=== PATIENT | male | born 1960 | race Caucasian/White ===

== ENCOUNTER 2018-02-02 11:46 | Emergency (ER) | payer SELFPAY ==
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
[2018-02-02 15:06] VITALS: BP 170/79
== END 2018-02-02 15:06 | disposition home or self-care (01) ==
LOC: ER 11:46
DX: B35.6 Tinea cruris (principal); M54.16 Radiculopathy, lumbar region; M54.5 Low back pain; G89.29 Other chronic pain; M21.371 Foot drop, right foot; F17.200 Nicotine dependence, unspecified, uncomplicated
CPT/HCPCS: 99283

== ENCOUNTER 2018-04-23 18:56 | Inpatient (IN) | payer SELFPAY ==
[2018-04-23] MEDS ORDERED: NALOXONE HCL INJ/PF 0.4 MG/1 ML SDV IV ONE (19:02)
[2018-04-23] MEDS ORDERED: NORMAL SALINE 1000 ML 1,000 ML IV ONE (19:03)
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
[2018-04-23] MEDS ORDERED: NALOXONE HCL INJ/PF 0.4 MG/1 ML SDV ONE (19:37)
[2018-04-23] MEDS ORDERED: DILTIAZEM HCL/D5W 125 MG/125 ML RTUINJ IV PRN (20:17)
[2018-04-23] MEDS ORDERED: DILTIAZEM HCL INJ 25 MG/5 ML VIAL IV ONE (20:18)
[2018-04-23 20:39] LABS: ABSOLUTE EOSINOPHILS # (AUTO) 0.1 10^3/uL (0.0-0.6); TOTAL CELLS COUNTED % (AUTO) 100 %
[2018-04-23 20:40] LABS: APPEARANCE,URINE CLEAR; BILIRUBIN,URINE NEGATIVE (NEGATIVE); COLOR,URINE COLORLESS; GLUCOSE, URINE NEGATIVE (NEGATIVE); KETONES,URINE NEGATIVE (NEGATIVE); LEUKOCYTE ESTERASE,URINE NEGATIVE (NEGATIVE); NITRITE,URINE NEGATIVE (NEGATIVE); PROTEIN,URINE NEGATIVE (NEGATIVE); URINE SPECIFIC GRAVITY 1.003; UROBILINOGEN,URINE NEGATIVE mg/dL (<2.0)
[2018-04-23 20:46] LABS: ABSOLUTE LYMPHOCYTES (AUTO) 2.2 10^3/uL (0.5-4.7); ABSOLUTE NEUT (AUTO) 8.4 10^3/uL (1.7-8.2); BASOPHILS % (AUTO) 0.2 % (0-2); EOSINOPHILS % (AUTO) 0.9 % (0-6); HEMATOCRIT 44.1 % (37.9-51.0); LYMPHOCYTES % (AUTO) 18.5 % (13-45); MEAN CORPUSCULAR HEMOGLOBIN 32.9 pg (27.0-33.4); MEAN CORPUSCULAR VOLUME 97 fl (80-97); MONOCYTES % (AUTO) 8.4 % (3-13); PLATELET COUNT 214 10^3/uL (150-450); RED BLOOD COUNT 4.57 10^6/uL (4.35-5.55); RED CELL DISTRIBUTION WIDTH 12.5 % (11.5-14.0); WHITE BLOOD COUNT 11.7 10^3/uL (4.0-10.5)
[2018-04-23 20:52] LABS: ALANINE AMINOTRANSFERASE 32 U/L (21-72); ALBUMIN 4.1 g/dL (3.5-5.0); ALCOHOL 193 mg/dL (NONE DETECTED); ALKALINE PHOSPHATASE 49 U/L (38-126); ANION GAP 9 (5-19); ASPARTATE AMINO TRANSFERASE 66 U/L (17-59); BILIRUBIN,DIRECT 0.3 mg/dL (0.0-0.4); BILIRUBIN,TOTAL 0.6 mg/dL (0.2-1.3); BLOOD UREA NITROGEN 6 mg/dL (7-20); CALCIUM 8.1 mg/dL (8.4-10.2); CARBON DIOXIDE 28 mmol/L (22-30); CHLORIDE 101 mmol/L (98-107); CREATINE KINASE 103 U/L (55-170); GLUCOSE 102 mg/dL (75-110); POTASSIUM 3.2 mmol/L (3.6-5.0); SODIUM 138.2 mmol/L (137-145); TOTAL PROTEIN 7.2 g/dL (6.3-8.2)
[2018-04-23 21:05] LABS: URINE AMPHETAMINES SCREEN NEGATIVE; URINE BARBITURATES SCREEN NEGATIVE; URINE BENZODIAZEPINES SCREEN NEGATIVE; URINE COCAINE SCREEN NEGATIVE; URINE MARIJUANA (THC) SCREEN NEGATIVE; URINE METHADONE SCREEN NEGATIVE; URINE PHENCYCLIDINE SCREEN NEGATIVE
--- NOTE | 2018-04-23 21:14 | RADIOLOGY REPORT (SQ) ---
XR CHEST 1 VIEW HISTORY: sob. COMPARISON: None. FINDINGS/IMPRESSION: Normal cardiomediastinal silhouette. Lungs are clear. No pleural effusion or pneumothorax is seen. No acute osseous findings.
--- NOTE | 2018-04-23 22:35 | EKG REPORT ---
SEVERITY:- ABNORMAL ECG - ATRIAL FIBRILLATION INCOMPLETE RIGHT BUNDLE BRANCH BLOCK : Confirmed by: Kayy Mantilla MD 23-Apr-2018 22:34:33
[2018-04-23] MEDS: MAGNESIUM SULFATE/D5W 1 GM/100 ML RTUPB IV SCH (23:14)
[2018-04-23] MEDS: POTASSI CL 20 MEQ/50 ML RIDER 20 MEQ/50 ML RTUPB IV SCH (23:15)
[2018-04-24] MEDS: MAGNESIUM SULFATE/D5W 1 GM/100 ML RTUPB IV SCH (00:10)
[2018-04-24] MEDS ORDERED: LEVALBUTEROL HCL NEB 1.25 MG/3 ML AMPUL NEB PRN (00:33)
[2018-04-24] MEDS ORDERED: DILTIAZEM HCL/D5W 125 MG/125 ML RTUINJ IV PRN (00:33)
[2018-04-24] MEDS ORDERED: MAG HYDROX/AL HYDROX/SIMETH SUSP 30 ML UDCUP PO PRN (00:33)
[2018-04-24] MEDS ORDERED: MAGNESIUM HYDROXIDE SUSP 30 ML UDCUP PO PRN (00:33)
[2018-04-24] MEDS ORDERED: THIAMINE HCL 100 MG, FOLIC ACID 1 MG in NORMAL SALINE 250 ML IV ONE (00:45)
[2018-04-24] MEDS ORDERED: DIAZEPAM 5 MG TABLET PO PRN (00:46)
[2018-04-24] MEDS ORDERED: NORMAL SALINE 1000 ML 1,000 ML IV PRN (01:00)
[2018-04-24] MEDS: POTASSI CL 20 MEQ/50 ML RIDER 20 MEQ/50 ML RTUPB IV SCH (01:05)
[2018-04-24 02:01] LABS: APPEARANCE,URINE CLEAR; BILIRUBIN,URINE NEGATIVE (NEGATIVE); COLOR,URINE STRAW; GLUCOSE, URINE 50 mg/dL (NEGATIVE); KETONES,URINE NEGATIVE (NEGATIVE); LEUKOCYTE ESTERASE,URINE NEGATIVE (NEGATIVE); NITRITE,URINE NEGATIVE (NEGATIVE); PROTEIN,URINE NEGATIVE (NEGATIVE); URINE SPECIFIC GRAVITY 1.003; UROBILINOGEN,URINE NEGATIVE mg/dL (<2.0)
[2018-04-24] MEDS ORDERED: THIAMINE HCL INJ 200 MG/2 ML VIAL ONE (02:04)
[2018-04-24] MEDS: ENOXAPARIN SODIUM INJ 80 MG/0.8 ML DISP.SYRIN SUBCUT SCH ×2 (02:08→13:17)
[2018-04-24] MEDS ORDERED: FOLIC ACID INJ 5 MG/1 ML 10 ML VIAL ONE (02:46)
[2018-04-24 03:05] LABS: CREATINE KINASE MB 1.08 ng/mL (<4.55); TROPONIN I 0.032 ng/mL
[2018-04-24] MEDS ORDERED: DILTIAZEM HCL/D5W 125 MG/125 ML RTUINJ IV ONE (05:01)
--- NOTE | 2018-04-24 06:57 | PDOC H&P ---
History of Present Illness Admission Date/PCP: 04/24/18 00:44 Patient complains of: Altered mental status History of Present Illness: ARLENE BAGLEY is a 57 year old male with a past medical history of tobacco, alcohol and polysubstance abuse who presents via EMS for opiate overdose after being found unresponsive. Patient received a total of 3 doses of Narcan is awake and alert but intoxicated. He is found hypoxic, A. fib with RVR, started on BiPAP and IV Cardizem. He denies any medications, chest pain and is referred to the hospitalist for admission. Patient denies previous episode of atrial fibrillation. Past Medical History Cardiac Medical History: Denies: Atrial Fibrillation, Congestive Heart Failure, Coronary Artery Disease Pulmonary Medical History: Reports: Bronchitis Musculoskeltal Medical History: Reports: Arthritis Psychiatric Medical History: Reports: Alcohol Dependency, Substance Abuse, Tobacco Dependency Past Surgical History Past Surgical History: Reports: None Social History Information Source: Patient, Emergency Med Personnel, [facility] Records Lives with: Family Smoking Status: Unknown if Ever Smoked Frequency of Alcohol Use: Heavy - 80 ounces of malt liquor daily, denies history of DTs Hx Recreational Drug Use: Yes Drugs: Cocaine, Other - Opiates - Advance Directive Resuscitation Status: Full Code Family History Family History: COPD Parental Family History Reviewed: Yes Children Family History Reviewed: Yes Sibling(s) Family History Reviewed.: Yes Medication/Allergy Home Medications: Terbinafine HCl [Jock Itch] 15 gm TP TID #60 cream..g. 02/02/18 Allergies/Adverse Reactions: No Known Allergies Allergy (Unverified 02/02/18 13:25) Review of Systems Constitutional: ABSENT: chills, fever(s), headache(s), weight gain, weight loss Eyes: ABSENT: visual disturbances Ears: ABSENT: hearing changes Cardiovascular: ABSENT: chest pain, dyspnea on exertion, edema, orthropnea, palpitations Respiratory: ABSENT: cough, hemoptysis Gastrointestinal: ABSENT: abdominal pain, constipation, diarrhea, hematemesis, hematochezia, nausea, vomiting Genitourinary: ABSENT: dysuria, hematuria Musculoskeletal: ABSENT: joint swelling Integumentary: ABSENT: rash, wounds Neurological: ABSENT: abnormal gait, abnormal speech, confusion, dizziness, focal weakness, syncope Psychiatric: ABSENT: anxiety, depression, homidical ideation, suicidal ideation Endocrine: ABSENT: cold intolerance, heat intolerance, polydipsia, polyuria Hematologic/Lymphatic: ABSENT: easy bleeding, easy bruising Physical Exam Vital Signs: Temp Pulse Resp BP Pulse Ox 16 117/78 93 04/24/18 06:01 04/24/18 06:01 04/24/18 06:01 Intake & Output 04/22/18 04/23/18 04/24/18 11:59 11:59 11:59 Intake Total 451.2 Balance 451.2 General appearance: PRESENT: cooperative, disheveled, mild distress, thin Head exam: PRESENT: atraumatic, normocephalic Eye exam: PRESENT: conjunctiva pink, EOMI, PERRLA. ABSENT: scleral icterus Ear exam: PRESENT: normal external ear exam Mouth exam: PRESENT: moist, tongue midline Neck exam: ABSENT: carotid bruit, JVD, lymphadenopathy, thyromegaly Respiratory exam: PRESENT: accessory muscle use, crackles, prolonged expiratory phas, retraction, tachypnea. ABSENT: wheezes Cardiovascular exam: PRESENT: irregular rhythm, +S1, +S2, tachycardia. ABSENT: gallop Pulses: PRESENT: normal dorsalis pedis pul Vascular exam: PRESENT: normal capillary refill GI/Abdominal exam: PRESENT: normal bowel sounds, soft. ABSENT: distended, guarding, mass, organolmegaly, rebound, tenderness Rectal exam: PRESENT: deferred Extremities exam: PRESENT: full ROM. ABSENT: calf tenderness, clubbing, pedal edema Neurological exam: PRESENT: alert, altered, awake, oriented to person, oriented to place, oriented to time, oriented to situation, CN II-XII grossly intact. ABSENT: motor sensory deficit Psychiatric exam: PRESENT: appropriate affect, normal mood. ABSENT: homicidal ideation, suicidal ideation Skin exam: PRESENT: dry, intact, warm. ABSENT: cyanosis, rash Results Laboratory Results: 04/24/18 01:41 Urine Color STRAW Urine Appearance CLEAR Urine pH 6.0 Ur Specific [place] 1.003 Urine Protein NEGATIVE Urine Glucose (UA) 50 H Urine Ketones NEGATIVE Urine Blood NEGATIVE Urine Nitrite NEGATIVE Ur Leukocyte Esterase NEGATIVE Urine WBC (Auto) 0 Urine RBC (Auto) 0 04/24/18 04/24/18 02:34 02:34 Creatine Kinase 100 CK-MB (CK-2) 1.08 Troponin I 0.032 Impressions: Chest X-Ray 04/23/18 20:18 FINDINGS/IMPRESSION: Normal cardiomediastinal silhouette. Lungs are clear. No pleural effusion or pneumothorax is seen. No acute osseous findings. Assessment & Plan - Diagnosis (1) Atrial fibrillation with rapid ventricular response Is this a current diagnosis for this admission?: Yes Plan: New onset complicated by polysubstance abuse, Lovenox, follow-up IV Cardizem, 2D echo and cardiac enzymes (2) Alcohol dependence Is this a current diagnosis for this admission?: Yes Plan: Folate, thiamine, as needed benzodiazepine and education (3) Hypoxemia Is this a current diagnosis for this admission?: Yes Plan: Possible pulmonary edema though not evident on initial chest x-ray, supplemental oxygen and BiPAP, Xopenex as needed (4) Opiate overdose Qualifiers: Encounter type: initial encounter Injury intent: accidental or unintentional Qualified Code(s): T40.601A - Poisoning by unspecified narcotics , accidental (unintentional), initial encounter Is this a current diagnosis for this admission?: Yes Plan: Supportive care, Narcan as needed - Time Time Spent: 50 to 70 Minutes - Inpatient Certification Medical Necessity: Need Close Monitoring Due to Risk of Patient Decompensation
[2018-04-24 08:59] LABS: CREATINE KINASE MB 0.97 ng/mL (<4.55); TROPONIN I 0.022 ng/mL
[2018-04-24] MEDS: DOCUSATE SODIUM 100 MG CAPSULE PO SCH ×2 (09:51→17:56)
[2018-04-24] MEDS ORDERED: THIAMINE HCL 100 MG, FOLIC ACID 1 MG in NORMAL SALINE 250 ML IV SCH (10:00)
[2018-04-24] MEDS ORDERED: DILTIAZEM HCL 240 MG CAPSULE.CR PO ONE (11:00)
[2018-04-24] MEDS ORDERED: LORAZEPAM INJ 2 MG/ML VIAL (4 MG PRN DOSE) IV (11:00)
[2018-04-24] MEDS ORDERED: LORAZEPAM 1 MG TABLET PO SCH (12:00)
[2018-04-24] MEDS ORDERED: MULTIVITAMIN TABLET PO SCH (12:00)
[2018-04-24] MEDS ORDERED: ONDANSETRON HCL INJ/PF 4 MG/2 ML SDV IV PRN (12:02)
[2018-04-24] MEDS: NORMAL SALINE 1000 ML 1,000 ML IV PRN (12:08)
--- NOTE | 2018-04-24 12:25 | XCELERA REPORT ---
[address] [address] Transthoracic Echocardiogram Report Name: ARLENE BAGLEY Age: 57 yrs Gender: Male : 1960 Patient Status: Inpatient Patient Location: [address] [place] [address] Study Date: 04/24/2018 11:04 AM Height: 70 in Weight: 138 lb BSA: 1.8 m2 Procedure: A complete two-dimensional transthoracic echocardiogram was performed (2D, M-mode, spectral and color flow Doppler). The study was technically adequate with some images being suboptimal in quality. Reason For Study: afib Ordering Physician: LEAH BLANCHARD Performed By: Betzy Jain Interpretation Summary The left ventricular ejection fraction is normal. There is borderline concentric left ventricular hypertrophy. The left ventricle is grossly normal size. LV diastolic function could not be adequately assessed. Wall motion cannot be accurately commented on, but no definite regional wall motion abnormalities noted. The right ventricular systolic function is normal. The right atrium is normal in size The left atrial size is normal. There is a trace amount of mitral regurgitation There is no mitral valve stenosis. There is no aortic valve stenosis No aortic regurgitation is present. There is a trace to mild amount of tricuspid regurgitation There is mild pulmonary hypertension by echo Right ventricular systolic pressure is estimated to be elevated at 30-40mmHg. The aortic root is not well visualized but is probably normal size. The inferior vena cava appeared normal and decreased > 50% with respiration (RAP 5-10 mmHg) There is no pericardial effusion. MMode/2D Measurements & Calculations RVDd: 2.1 cm LVIDd: 4.6 cm FS: 41.1 % Ao root diam: 2.9 cm IVSd: 1.0 cm LVIDs: 2.7 cm EDV(Teich): 96.8 ml Ao root area: 6.8 cm2 LVPWd: 0.99 cm ESV(Teich): 27.1 ml LA dimension: 3.1 cm EF(Teich): 72.0 % Doppler Measurements & Calculations MV E max arron: MV P1/2t max arron: Ao V2 max: LV V1 max P.0 cm/sec 119.9 cm/sec 180.7 cm/sec 8.1 mmHg MV A max arron: MV P1/2t: 114.8 msec Ao max PG: LV V1 max: 66.6 cm/sec MVA(P1/2t): 1.9 cm2 13.1 mmHg 142.2 cm/sec MV E/A: 1.8 MV dec slope: 305.9 cm/sec2 PA V2 max: TR max arron: MV P1/2t-pr_phl: 87.9 cm/sec 278.3 cm/sec 58.5 msec PA max P.1 mmHgTR max P.0 mmHg Left Ventricle The left ventricle is grossly normal size. There is borderline concentric left ventricular hypertrophy. The left ventricular ejection fraction is normal. LV diastolic function could not be adequately assessed. Wall motion cannot be accurately commented on, but no definite regional wall motion abnormalities noted. Right Ventricle The right ventricle is grossly normal size. There is normal right ventricular wall thickness. The right ventricular systolic function is normal. Atria The right atrium is normal in size. The left atrial size is normal. Interarterial septum not well visualized and not well dopplered. Cannot comment on ASD/PFO presence. Mitral Valve The mitral valve is grossly normal. There is no mitral valve stenosis. There is a trace amount of mitral regurgitation. Aortic Valve The aortic valve is grossly normal. There is no aortic valve stenosis. No aortic regurgitation is present. Tricuspid Valve The tricuspid valve is not well visualized, but is grossly normal. There is no tricuspid stenosis. There is a trace to mild amount of tricuspid regurgitation. There is mild pulmonary hypertension by echo. Right ventricular systolic pressure is estimated to be elevated at 30-40mmHg. Pulmonic Valve The pulmonic valve is not well visualized. Great Vessels The aortic root is not well visualized but is probably normal size. The inferior vena cava appeared normal and decreased > 50% with respiration (RAP 5-10 mmHg). Effusions There is no pericardial effusion. : LEAH BLANCHARD > [facility] [place]
[2018-04-24] MEDS ORDERED: FOLIC ACID 1 MG TABLET PO ONE (13:00)
[2018-04-24] MEDS ORDERED: THIAMINE HCL 100 MG TABLET PO ONE (13:00)
[2018-04-24] MEDS: LORAZEPAM 1 MG TABLET (TAPER DOSING) PO SCH ×2 (14:22→17:56)
[2018-04-24 15:16] LABS: CREATINE KINASE MB 0.93 ng/mL (<4.55)
[2018-04-24 15:19] LABS: TROPONIN I < 0.012 ng/mL
--- NOTE | 2018-04-24 15:32 | Progress Note ---
Provider Note Provider Note: Patient was admitted overnight and is currently stable. He was still on Cardizem drip at 15mg/hour at the time of my evaluation but his rate was controlled. Oral Cardizem at 240mg x1 ordered and advised RN to taper off Cardizem. Patient was awake and alert at the time of my evaluation. He was transported to the [facility] and it appeared he spontaneously converted to sinus rhythm shortly thereafter. Cardizem drip was discontinued. Patient will be placed on oral Cardizem daily with adjustments to be made depending on his subsequent hospital course as well as echocardiogram
[2018-04-24] MEDS: NORMAL SALINE 1000 ML 1,000 ML with POTASSIUM CHLORIDE 20 MEQ, MAGNESIUM SULFATE 8 MEQ,... IV SCH ×4 (17:56)
[2018-04-25] MEDS: LORAZEPAM 1 MG TABLET (TAPER DOSING) PO SCH ×4 (00:02→21:47)
[2018-04-25] MEDS: ENOXAPARIN SODIUM INJ 80 MG/0.8 ML DISP.SYRIN SUBCUT SCH ×2 (00:04→13:25)
[2018-04-25 05:14] LABS: ABSOLUTE EOSINOPHILS # (AUTO) 0.1 10^3/uL (0.0-0.6); ABSOLUTE LYMPHOCYTES (AUTO) 1.4 10^3/uL (0.5-4.7); ABSOLUTE NEUT (AUTO) 6.6 10^3/uL (1.7-8.2); BASOPHILS % (AUTO) 0.3 % (0-2); EOSINOPHILS % (AUTO) 0.7 % (0-6); HEMATOCRIT 43.2 % (37.9-51.0); HEMOGLOBIN 15.3 g/dL (13.5-17.0); LYMPHOCYTES % (AUTO) 15.4 % (13-45); MEAN CORPUSCULAR HEMOGLOBIN 33.7 pg (27.0-33.4); MEAN CORPUSCULAR HGB CONC 35.3 g/dL (32.0-36.0); MEAN CORPUSCULAR VOLUME 96 fl (80-97); MONOCYTES % (AUTO) 10.8 % (3-13); PLATELET COUNT 159 10^3/uL (150-450); RED BLOOD COUNT 4.53 10^6/uL (4.35-5.55); RED CELL DISTRIBUTION WIDTH 12.4 % (11.5-14.0); SEGMENTED NEUTROPHILS % (AUTO) 72.8 % (42-78); TOTAL CELLS COUNTED % (AUTO) 100 %; WHITE BLOOD COUNT 9.1 10^3/uL (4.0-10.5)
[2018-04-25 05:34] LABS: ANION GAP 5 (5-19); BLOOD UREA NITROGEN 7 mg/dL (7-20); CALCIUM 8.4 mg/dL (8.4-10.2); CARBON DIOXIDE 28 mmol/L (22-30); CHLORIDE 102 mmol/L (98-107); GLUCOSE 86 mg/dL (75-110); POTASSIUM 4.1 mmol/L (3.6-5.0)
[2018-04-25] MEDS: FOLIC ACID 1 MG TABLET PO SCH (09:19)
[2018-04-25] MEDS: DOCUSATE SODIUM 100 MG CAPSULE PO SCH ×2 (09:19→18:11)
[2018-04-25] MEDS: DILTIAZEM HCL 180 MG CAPSULE.CR PO SCH (09:19)
[2018-04-25] MEDS: THIAMINE HCL 100 MG TABLET PO SCH (09:19)
[2018-04-25] MEDS: NORMAL SALINE 1000 ML 1,000 ML IV PRN (13:57)
[2018-04-25] MEDS ORDERED: LORAZEPAM 1 MG TABLET PO SCH (14:00)
--- NOTE | 2018-04-25 15:53 | PDOC PROGRESS REPORT ---
Subjective Progress Note for:: 04/25/18 Subjective:: Patient states he is feeling better. He is overall very tired. He does feel hungry. No nausea vomiting and Darian pain. No chest pain or difficulty breathing. No acute pain. Reason For Visit: AFIB OPIATE OVERDOSE, ETOH WITHDRAW Physical Exam Vital Signs: Temp Pulse Resp BP Pulse Ox 98.1 F 93 20 161/81 H 94 04/25/18 11:16 04/25/18 14:00 04/25/18 11:16 04/25/18 11:16 04/25/18 11:16 Intake & Output 04/24/18 04/25/18 04/26/18 06:59 06:59 06:59 Intake Total 451.2 2836 599 Output Total 1300 675 Balance 451.2 1536 -76 Weight 63.7 kg 63.2 kg General appearance: PRESENT: no acute distress, cooperative, disheveled Eye exam: ABSENT: conjunctival injection, scleral icterus Ear exam: PRESENT: normal external ear exam Respiratory exam: PRESENT: decreased breath sounds, unlabored. ABSENT: rales, rhonchi, wheezes Cardiovascular exam: PRESENT: RRR. ABSENT: systolic murmur Pulses: PRESENT: normal radial pulses GI/Abdominal exam: PRESENT: normal bowel sounds, soft. ABSENT: distended, guarding, tenderness Rectal exam: PRESENT: deferred Gentrourinary exam: ABSENT: indwelling catheter Extremities exam: ABSENT: pedal edema Neurological exam: PRESENT: alert, awake, oriented to person, oriented to place , oriented to situation, CN II-XII grossly intact Psychiatric exam: PRESENT: flat affect Skin exam: PRESENT: dry, intact, warm Results Laboratory Results: 04/25/18 04:39 04/25/18 04:39 04/25/18 04/25/18 04:39 04:39 WBC 9.1 RBC 4.53 Hgb 15.3 Hct 43.2 MCV 96 MCH 33.7 H MCHC 35.3 RDW 12.4 Plt Count 159 Seg Neutrophils % 72.8 Lymphocytes % 15.4 Monocytes % 10.8 Eosinophils % 0.7 Basophils % 0.3 Absolute Neutrophils 6.6 Absolute Lymphocytes 1.4 Absolute Monocytes 1.0 Absolute Eosinophils 0.1 Absolute Basophils 0.0 Sodium 135.0 L Potassium 4.1 Chloride 102 Carbon Dioxide 28 Anion Gap 5 BUN 7 Creatinine 0.68 Est GFR ( Amer) > 60 Est GFR (Non-Af Amer) > 60 Glucose 86 Calcium 8.4 Magnesium 2.4 H 04/24/18 04/24/18 04/24/18 02:34 02:34 08:20 Creatine Kinase 100 84 CK-MB (CK-2) 1.08 Troponin I 0.032 04/24/18 04/24/18 04/24/18 08:20 14:22 14:22 Creatine Kinase 93 CK-MB (CK-2) 0.97 0.93 Troponin I 0.022 < 0.012 Impressions: Chest X-Ray 04/23/18 20:18 FINDINGS/IMPRESSION: Normal cardiomediastinal silhouette. Lungs are clear. No pleural effusion or pneumothorax is seen. No acute osseous findings. Assessment & Plan - Diagnosis (1) Elevated troponin Is this a current diagnosis for this admission?: Yes Plan: Patient may have undiagnosed coronary disease. He may have had a very mild end STEMI. He is symptom-free. We will see if stress testing is appropriate during this hospitalization. Leather Grainer will be consulted for this and A. fib management given his severe alcoholism and opiate use disorder. Troponins have now trended down. He is anticoagulated for new onset A. fib. (2) Alcohol dependence Is this a current diagnosis for this admission?: Yes Plan: Once patient is feeling better and more willing to talk, if possible, we will discuss alcohol cessation and the importance of that given these medical problems. (3) Atrial fibrillation with rapid ventricular response Is this a current diagnosis for this admission?: Yes Plan: She is rate is now controlled on 180 mg daily of diltiazem. He is currently in sinus rhythm. We will continue with telemetry. Continue with therapeutic Lovenox for anticoagulation. At this point treated hypertension, I have ordered a hemoglobin A1c. We do not have evidence that he has any of the other findings from the chads vASC scoring system. Past he has a score of 1 and an argument could be made for anticoagulation. This could be dangerous in this patient given his alcohol and opiate use disorder. Will discuss t with him and with family if appropriate. (4) Hypoxemia Is this a current diagnosis for this admission?: Yes Plan: Seems to be resolved. He is satting in the mid 90s on room air. We will continue to follow. No evidence of respiratory tract infection. (5) Opiate overdose Qualifiers: Encounter type: initial encounter Injury intent: accidental or unintentional Qualified Code(s): T40.601A - Poisoning by unspecified narcotics , accidental (unintentional), initial encounter Is this a current diagnosis for this admission?: Yes Plan: Possibly the cause of his hypoxemia initially. Once he is fully awake and feeling better we will discuss the importance of opiate cessation. - Time Time Spent with patient: 25-34 minutes Medications reviewed and adjusted accordingly: Yes - Inpatient Certification Based on my medical assessment, after consideration of the patient's comorbidities, presenting symptoms, or acuity I expect that the services needed warrant INPATIENT care.: Yes I certify that my determination is in accordance with my understanding of Medicare's requirements for reasonable and necessary INPATIENT services [42 CFR 412.3e].: Yes Medical Necessity: Significant Comorbidiites Make Outpatient Treatment Too Risky , Need Close Monitoring Due to Risk of Patient Decompensation, Risk of Complication if Not Cared For in Hospital
[2018-04-25] MEDS: NORMAL SALINE 1000 ML 1,000 ML with POTASSIUM CHLORIDE 20 MEQ, MAGNESIUM SULFATE 8 MEQ,... IV SCH ×4 (18:11)
[2018-04-25] MEDS ORDERED: LORAZEPAM INJ 2 MG/1 ML VIAL IV ONE (23:45)
[2018-04-26] MEDS: ENOXAPARIN SODIUM INJ 80 MG/0.8 ML DISP.SYRIN SUBCUT SCH ×2 (03:59→12:56)
[2018-04-26] MEDS: LORAZEPAM 1 MG TABLET (TAPER DOSING) PO SCH ×4 (06:02→18:35)
[2018-04-26] MEDS ORDERED: LORAZEPAM INJ 2 MG/1 ML VIAL IV ONE (07:15)
[2018-04-26] MEDS: DOCUSATE SODIUM 100 MG CAPSULE PO SCH ×2 (10:52→17:41)
[2018-04-26] MEDS: DILTIAZEM HCL 180 MG CAPSULE.CR PO SCH (10:52)
[2018-04-26] MEDS: FOLIC ACID 1 MG TABLET PO SCH (10:52)
[2018-04-26] MEDS: THIAMINE HCL 100 MG TABLET PO SCH (10:52)
[2018-04-26] MEDS: NORMAL SALINE 1000 ML 1,000 ML IV PRN (10:58)
[2018-04-26] MEDS ORDERED: LORAZEPAM 1 MG TABLET PO SCH (12:00)
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
--- NOTE | 2018-04-26 15:12 | PDOC CONSULTATION ---
Consultation Consult Date: 04/25/18 Attending physician:: RICARDO PENNY Consult reason:: Atrial fibrillation History of Present Illness Admission Date/PCP: 04/24/18 00:44 Patient complains of: Atrial fibrillation History of Present Illness: ARLENE BAGLEY is a 57 year old male with a past medical history of tobacco, alcohol and polysubstance abuse who presents via EMS for opiate overdose after being found unresponsive. Patient received a total of 3 doses of Narcan is awake and alert but intoxicated. He is found hypoxic, A. fib with RVR, started on BiPAP and IV Cardizem. He denies any medications, chest pain and is referred to the hospitalist for admission. Patient denies previous episode of atrial fibrillation. This history obtained by the hospitalist was reviewed and confirmed. Patient denies any prior history of heart problems, strokes, mini strokes, blood clots in the legs are in the lungs. I was asked to see this patient to advise regarding atrial fibrillation and any need for chronic anticoagulation. Past Medical History Cardiac Medical History: Denies: Atrial Fibrillation, Congestive Heart Failure, Coronary Artery Disease Pulmonary Medical History: Reports: Bronchitis Musculoskeltal Medical History: Reports: Arthritis Psychiatric Medical History: Reports: Alcohol Dependency, Substance Abuse, Tobacco Dependency Denies: Depression Past Surgical History Past Surgical History: Reports: None Social History Information Source: Patient Lives with: Family Smoking Status: Current Every Day Smoker Cigarettes Packs Per Day: 1 Number of Years Smokin Frequency of Alcohol Use: Heavy Hx Recreational Drug Use: Yes Drugs: Cocaine, Heroin, Marijuana Hx Prescription Drug Abuse: No - Advance Directive Resuscitation Status: Full Code Family History Family History: COPD Parental Family History Reviewed: Yes Children Family History Reviewed: Yes Sibling(s) Family History Reviewed.: Yes Medication/Allergy Home Medications: No Home Medications 04/24/18 Allergies/Adverse Reactions: No Known Allergies Allergy (Unverified 02/02/18 13:25) Physical Exam Vital Signs: Temp Pulse Resp BP Pulse Ox 98.3 F 87 18 143/80 H 96 04/25/18 15:18 04/25/18 15:18 04/25/18 15:18 04/25/18 15:18 04/25/18 15:18 Intake & Output 04/24/18 04/25/18 04/26/18 06:59 06:59 06:59 Intake Total 451.2 2836 1036 Output Total 1300 1550 Balance 451.2 1536 -514 Weight 63.7 kg 63.2 kg Exam: GENERAL: well-nourished and in no acute distress. Alert and oriented x3. Patient noted to be slightly anxious. HEAD: Atraumatic, normocephalic. EYES: Pupils equal round and reactive to light, extraocular movements intact, sclera anicteric, conjunctiva are normal. ENT: TMs normal, nares patent, oropharynx clear without exudates. Moist mucous membranes. No oral ulcerations or bleeding gums noted NECK: supple without lymphadenopathy. Trachea is central. No cervical or axillary lymphadenopathy noted. Carotids are 2+, JVD WNL LUNGS: Respiration seems nonlabored, no significant accessory muscle action noted. Breath sounds clear to auscultation bilaterally and equal noted. No wheezes rales or rhonchi noted. No significant dullness noted on percussion. CHEST: Palpation of the chest wall shows no significant chest wall tenderness. HEART: [place] [employer], No PSH, 1/6 MACY aortic area, 1/6 shen systolic murmur mitral area, no rubs, no gallops. ABDOMEN: Soft, no significant tenderness appreciated, normoactive bowel sounds. No guarding, no rebound. No rigidity noted . No masses appreciated. EXTREMITIES: Pedal pulses are 1-2+, no calf tenderness noted. No clubbing or cyanosis. negative pedal edema noted NEUROLOGICAL: Focused neurological exam showed no significant neurologic deficit. Normal speech, no focal weakness appreciated. PSYCH: Normal mood, normal affect. Judgment and insight within normal limits. SKIN: No significant ecchymosis, skin is noted to be warm. MUSCULOSKELETAL EXAM: No significant acute joint swelling noted. Results Laboratory Results: 04/25/18 04:39 04/25/18 04:39 04/25/18 04/25/18 04:39 04:39 WBC 9.1 RBC 4.53 Hgb 15.3 Hct 43.2 MCV 96 MCH 33.7 H MCHC 35.3 RDW 12.4 Plt Count 159 Seg Neutrophils % 72.8 Lymphocytes % 15.4 Monocytes % 10.8 Eosinophils % 0.7 Basophils % 0.3 Absolute Neutrophils 6.6 Absolute Lymphocytes 1.4 Absolute Monocytes 1.0 Absolute Eosinophils 0.1 Absolute Basophils 0.0 Sodium 135.0 L Potassium 4.1 Chloride 102 Carbon Dioxide 28 Anion Gap 5 BUN 7 Creatinine 0.68 Est GFR ( Amer) > 60 Est GFR (Non-Af Amer) > 60 Glucose 86 Calcium 8.4 Magnesium 2.4 H 04/24/18 04/24/18 04/24/18 02:34 02:34 08:20 Creatine Kinase 100 84 CK-MB (CK-2) 1.08 Troponin I 0.032 04/24/18 04/24/18 04/24/18 08:20 14:22 14:22 Creatine Kinase 93 CK-MB (CK-2) 0.97 0.93 Troponin I 0.022 < 0.012 EKG Comments: Shows atrial fibrillation with rapid ventricular response. No acute ST-T wave changes are noted. Impressions: Chest X-Ray 04/23/18 20:18 FINDINGS/IMPRESSION: Normal cardiomediastinal silhouette. Lungs are clear. No pleural effusion or pneumothorax is seen. No acute osseous findings. Assessment & Plan - Diagnosis (1) Atrial fibrillation with rapid ventricular response Is this a current diagnosis for this admission?: Yes (2) Alcohol dependence Qualifiers: Substance use status: with intoxication Complication of substance-induced condition: with unspecified complication Qualified Code(s): F10.229 - Alcohol dependence with intoxication, unspecified Is this a current diagnosis for this admission?: Yes (3) Elevated troponin Is this a current diagnosis for this admission?: Yes (4) Hypoxemia Is this a current diagnosis for this admission?: Yes (5) Opiate overdose Qualifiers: Encounter type: initial encounter Injury intent: accidental or unintentional Qualified Code(s): T40.601A - Poisoning by unspecified narcotics , accidental (unintentional), initial encounter Is this a current diagnosis for this admission?: Yes - Notes Notes: Consultation was for atrial fibrillation with RVR. Patient not a candidate for chronic anticoagulation at this time. Recommend rate control. Atrial fibrillation with rapid ventricular response: Patient spontaneously converted to sinus rhythm. Most likely related to alcohol intoxication which can cause transient atrial muscle myopathy. Patient has reverted back to sinus rhythm. No need for chronic anticoagulation or acute anticoagulation at this point. Alcohol dependence: Patient has been advised to quit smoking and drinking. Elevated troponin I: These are felt to be not significant. No need for ischemia workup at this point in the absence of any chest pain. Patient will benefit from risk factor modification. Hypoxemia: Improved. Patient should quit smoking. Opiate overdose: Patient did not receive Narcan. Side effects discussed. - Time Time Spent: 30 to 50 Minutes - CODE STATUS was discussed, patient remains full code. Surrogate decision-maker unchanged. Multiple medical problems were addressed. More than 50% of the time spent coordinating care, discussing management plans with involved caregivers. Management plans discussed with involved personnels. Medical decision making was of moderate to high complexity , patient's has multiple comorbidities. Medications reviewed and adjusted accordingly: Yes
--- NOTE | 2018-04-26 15:15 | PDOC PROGRESS REPORT ---
Subjective Progress Note for:: 04/26/18 Subjective:: Patient seems to be doing better with gradual improvement. Patient however noted to be slightly anxious. Pt is denying any chest arm or neck discomfort. Patient denying any PND, orthopnea. Patient denied any sustained palpitations, dizziness, syncope, near syncope. Patient denying any fever chills. Patient denying any other significant discomfort. Patient is maintaining sinus rhythm. Review of systems: Rest review of systems negative. Medications: Medications have been reviewed. Reason For Visit: AFIB OPIATE OVERDOSE, ETOH WITHDRAW Physical Exam Vital Signs: Temp Pulse Resp BP Pulse Ox 97.8 F 95 16 147/79 H 100 04/26/18 10:44 04/26/18 14:00 04/26/18 10:44 04/26/18 10:44 04/26/18 10:44 Intake & Output 04/25/18 04/26/18 04/27/18 06:59 06:59 06:59 Intake Total 2836 1136 1222 Output Total 1300 2350 750 Balance 1536 -1214 472 Weight 63.2 kg 63.1 kg Exam: GENERAL: well-nourished and in no acute distress. Alert and oriented x3 HEAD: Atraumatic, normocephalic. EYES: Pupils equal round and reactive to light, extraocular movements intact, sclera anicteric, conjunctiva are normal. ENT: TMs normal, nares patent, oropharynx clear without exudates. Moist mucous membranes. No oral ulcerations or bleeding gums noted NECK: supple without lymphadenopathy. Trachea is central. No cervical or axillary lymphadenopathy noted. Carotids are 2+, JVD WNL LUNGS: Respiration seems nonlabored, no significant accessory muscle action noted. Breath sounds clear to auscultation bilaterally and equal noted. No wheezes rales or rhonchi noted. No significant dullness noted on percussion. CHEST: Palpation of the chest wall shows no significant chest wall tenderness. HEART: [place] [employer]ER, No PSH, 1/6 MACY aortic area, 1/6 shen systolic murmur mitral area, no rubs, no gallops. ABDOMEN: Soft, no significant tenderness appreciated, normoactive bowel sounds. No guarding, no rebound. No rigidity noted . No masses appreciated. EXTREMITIES: Pedal pulses are 1-2+, no calf tenderness noted. No clubbing or cyanosis. negative pedal edema noted NEUROLOGICAL: Focused neurological exam showed no significant neurologic deficit. Normal speech, no focal weakness appreciated. PSYCH: Normal mood, normal affect. Judgment and insight within normal limits. SKIN: No significant ecchymosis, skin is noted to be warm. MUSCULOSKELETAL EXAM: No significant acute joint swelling noted. Results Laboratory Results: 04/25/18 04:39 04/25/18 04:39 04/24/18 04/24/18 04/24/18 02:34 02:34 08:20 Creatine Kinase 100 84 CK-MB (CK-2) 1.08 Troponin I 0.032 04/24/18 04/24/18 04/24/18 08:20 14:22 14:22 Creatine Kinase 93 CK-MB (CK-2) 0.97 0.93 Troponin I 0.022 < 0.012 Impressions: Chest X-Ray 04/23/18 20:18 FINDINGS/IMPRESSION: Normal cardiomediastinal silhouette. Lungs are clear. No pleural effusion or pneumothorax is seen. No acute osseous findings. Assessment & Plan - Diagnosis (1) Atrial fibrillation with rapid ventricular response Is this a current diagnosis for this admission?: Yes (2) Alcohol dependence Qualifiers: Substance use status: with intoxication Complication of substance-induced condition: with unspecified complication Qualified Code(s): F10.229 - Alcohol dependence with intoxication, unspecified Is this a current diagnosis for this admission?: Yes (3) Elevated troponin Is this a current diagnosis for this admission?: Yes (4) Hypoxemia Is this a current diagnosis for this admission?: Yes (5) Opiate overdose Qualifiers: Encounter type: initial encounter Injury intent: accidental or unintentional Qualified Code(s): T40.601A - Poisoning by unspecified narcotics , accidental (unintentional), initial encounter Is this a current diagnosis for this admission?: Yes - Notes Notes: Atrial fibrillation with rapid ventricular response: Patient spontaneously converted to sinus rhythm. Most likely related to alcohol intoxication which can cause transient atrial muscle myopathy. Patient has reverted back to sinus rhythm. No need for chronic anticoagulation or acute anticoagulation at this point. Also there is no need for antiarrhythmics. Alcohol dependence: Patient has been advised to quit smoking and drinking. Elevated troponin I: These are felt to be not significant. No need for ischemia workup at this point in the absence of any chest pain. Patient will benefit from risk factor modification. Hypoxemia: Improved. Patient should quit smoking. Opiate overdose: Patient did not receive Narcan. Side effects discussed. - Time Time with patient: 15-25 minutes - More than 50% of the time spent coordinating care, discussing management plans with involved caregivers. Management plans discussed with involved personnels. Medical decision making was of moderate to high complexity, patient's has multiple comorbidities. Medications reviewed and adjusted accordingly: Yes
[2018-04-26] MEDS: NORMAL SALINE 1000 ML 1,000 ML with POTASSIUM CHLORIDE 20 MEQ, MAGNESIUM SULFATE 8 MEQ,... IV SCH ×4 (17:40)
[2018-04-27] MEDS: LORAZEPAM 1 MG TABLET (TAPER DOSING) PO SCH ×4 (02:34→22:39)
[2018-04-27] MEDS: ENOXAPARIN SODIUM INJ 80 MG/0.8 ML DISP.SYRIN SUBCUT SCH ×2 (02:35→19:06)
[2018-04-27 06:33] LABS: HEMATOCRIT 42.9 % (37.9-51.0); HEMOGLOBIN 15.1 g/dL (13.5-17.0); MEAN CORPUSCULAR HEMOGLOBIN 33.7 pg (27.0-33.4); MEAN CORPUSCULAR HGB CONC 35.3 g/dL (32.0-36.0); MEAN CORPUSCULAR VOLUME 95 fl (80-97); PLATELET COUNT 200 10^3/uL (150-450); RED CELL DISTRIBUTION WIDTH 12.3 % (11.5-14.0); WHITE BLOOD COUNT 6.6 10^3/uL (4.0-10.5)
[2018-04-27 06:55] LABS: APPEARANCE,URINE CLEAR; BILIRUBIN,URINE NEGATIVE (NEGATIVE); COLOR,URINE YELLOW; GLUCOSE, URINE NEGATIVE (NEGATIVE); KETONES,URINE NEGATIVE (NEGATIVE); LEUKOCYTE ESTERASE,URINE NEGATIVE (NEGATIVE); NITRITE,URINE NEGATIVE (NEGATIVE); PROTEIN,URINE NEGATIVE (NEGATIVE); URINE SPECIFIC GRAVITY 1.006
[2018-04-27] MEDS: LORAZEPAM INJ 2 MG/1 ML VIAL IV PRN ×2 (08:55→19:30)
[2018-04-27] MEDS: DILTIAZEM HCL 180 MG CAPSULE.CR PO SCH (11:29)
[2018-04-27] MEDS: DOCUSATE SODIUM 100 MG CAPSULE PO SCH ×2 (11:29→19:30)
[2018-04-27] MEDS: NORMAL SALINE 1000 ML 1,000 ML IV PRN (11:29)
[2018-04-27] MEDS: FOLIC ACID 1 MG TABLET PO SCH (11:30)
[2018-04-27] MEDS: THIAMINE HCL 100 MG TABLET PO SCH (11:30)
[2018-04-27] MEDS ORDERED: LORAZEPAM 1 MG TABLET PO SCH (14:00)
--- NOTE | 2018-04-27 15:25 | PDOC PROGRESS REPORT ---
Subjective Progress Note for:: 04/27/18 Subjective:: No adverse events overnight. No new complaints. Vital signs are stable. He is lying in bed watching television breathing comfortably. He said he has been eating and drinking without difficulty. He has no desire to quit drinking. Reason For Visit: AFIB OPIATE OVERDOSE, ETOH WITHDRAW Physical Exam Vital Signs: Temp Pulse Resp BP Pulse Ox 98.3 F 83 16 156/88 H 100 04/27/18 11:28 04/27/18 11:28 04/27/18 11:28 04/27/18 11:28 04/27/18 11:28 Intake & Output 04/26/18 04/27/18 04/28/18 06:59 06:59 06:59 Intake Total 1136 2317 233 Output Total 6221 5185 225 Balance -1214 -358 8 Weight 63.1 kg 60.6 kg General appearance: PRESENT: mild distress, thin Head exam: PRESENT: atraumatic, normocephalic Eye exam: ABSENT: conjunctival injection, scleral icterus Mouth exam: PRESENT: moist Respiratory exam: PRESENT: clear to auscultation luh, unlabored. ABSENT: rales , rhonchi, wheezes Cardiovascular exam: PRESENT: RRR. ABSENT: systolic murmur Pulses: PRESENT: normal radial pulses Rectal exam: PRESENT: deferred Gentrourinary exam: ABSENT: indwelling catheter Extremities exam: ABSENT: pedal edema Neurological exam: PRESENT: alert, awake, oriented to person, oriented to place. ABSENT: oriented to situation Psychiatric exam: PRESENT: agitated, flat affect Skin exam: PRESENT: dry, intact, warm. ABSENT: jaundice Results Laboratory Results: 04/27/18 05:49 04/25/18 04:39 04/27/18 04/27/18 05:35 05:49 WBC 6.6 RBC 4.50 Hgb 15.1 Hct 42.9 MCV 95 MCH 33.7 H MCHC 35.3 RDW 12.3 Plt Count 200 Urine Color YELLOW Urine Appearance CLEAR Urine pH 7.0 Ur Specific [place] 1.006 Urine Protein NEGATIVE Urine Glucose (UA) NEGATIVE Urine Ketones NEGATIVE Urine Blood NEGATIVE Urine Nitrite NEGATIVE Ur Leukocyte Esterase NEGATIVE Urine WBC (Auto) 0 04/24/18 04/24/18 04/24/18 02:34 02:34 08:20 Creatine Kinase 100 84 CK-MB (CK-2) 1.08 Troponin I 0.032 04/24/18 04/24/18 04/24/18 08:20 14:22 14:22 Creatine Kinase 93 CK-MB (CK-2) 0.97 0.93 Troponin I 0.022 < 0.012 Impressions: Chest X-Ray 04/23/18 20:18 FINDINGS/IMPRESSION: Normal cardiomediastinal silhouette. Lungs are clear. No pleural effusion or pneumothorax is seen. No acute osseous findings. Assessment & Plan - Diagnosis (1) Acute respiratory failure with hypoxemia Is this a current diagnosis for this admission?: Yes Plan: Due to drug overdose (opiate). Resolved. SPO2 was 88% on room air on admission and he had a respiratory rate as high as 28/min. Heart rate was between 121 in the 128/min and he displayed hypoventilation and required close monitoring and evaluation. (2) Atrial fibrillation with rapid ventricular response Is this a current diagnosis for this admission?: Yes Plan: Resolved. Cardiology has been consulted. Will check to see if they are recommending any further workup. He is not having any chest pain. (3) Opiate overdose Qualifiers: Encounter type: initial encounter Injury intent: accidental or unintentional Qualified Code(s): T40.601A - Poisoning by unspecified narcotics , accidental (unintentional), initial encounter Is this a current diagnosis for this admission?: Yes Plan: Resolved (4) Alcohol dependence Qualifiers: Substance use status: with intoxication Complication of substance-induced condition: with unspecified complication Qualified Code(s): F10.229 - Alcohol dependence with intoxication, unspecified Is this a current diagnosis for this admission?: Yes Plan: He had no desire to quit when I spoke to him earlier. - Time Time Spent with patient: 25-34 minutes
[2018-04-27] MEDS: NORMAL SALINE 1000 ML 1,000 ML with POTASSIUM CHLORIDE 20 MEQ, MAGNESIUM SULFATE 8 MEQ,... IV SCH ×4 (19:30)
--- NOTE | 2018-04-27 20:25 | PDOC PROGRESS REPORT ---
Subjective Progress Note for:: 04/27/18 Subjective:: Patient seems to be doing better with gradual improvement. Pt is denying any chest arm or neck discomfort. Patient denying any PND, orthopnea. Patient denied any sustained palpitations, dizziness, syncope, near syncope. Patient denying any fever chills. Patient denying any other significant discomfort. Patient is maintaining sinus rhythm. Review of systems: Rest review of systems negative. Medications: Medications have been reviewed. Reason For Visit: AFIB OPIATE OVERDOSE, ETOH WITHDRAW Physical Exam Vital Signs: Temp Pulse Resp BP Pulse Ox 98.0 F 96 14 141/85 H 98 04/27/18 15:42 04/27/18 15:42 04/27/18 15:42 04/27/18 15:42 04/27/18 15:42 Intake & Output 04/26/18 04/27/18 04/28/18 06:59 06:59 06:59 Intake Total 1136 2317 1594 Output Total 2350 2675 950 Balance -1214 -358 644 Weight 63.1 kg 60.6 kg Exam: GENERAL: well-nourished and in no acute distress. Alert and oriented x3 HEAD: Atraumatic, normocephalic. EYES: Pupils equal round and reactive to light, extraocular movements intact, sclera anicteric, conjunctiva are normal. ENT: TMs normal, nares patent, oropharynx clear without exudates. Moist mucous membranes. No oral ulcerations or bleeding gums noted NECK: supple without lymphadenopathy. Trachea is central. No cervical or axillary lymphadenopathy noted. Carotids are 2+, JVD WNL LUNGS: Respiration seems nonlabored, no significant accessory muscle action noted. Breath sounds clear to auscultation bilaterally and equal noted. No wheezes rales or rhonchi noted. No significant dullness noted on percussion. CHEST: Palpation of the chest wall shows no significant chest wall tenderness. HEART: [place] UNIT COORDINATOR, No PSH, 1/6 MACY aortic area, 1/6 shen systolic murmur mitral area, no rubs, no gallops. ABDOMEN: Soft, no significant tenderness appreciated, normoactive bowel sounds. No guarding, no rebound. No rigidity noted . No masses appreciated. EXTREMITIES: Pedal pulses are 1-2+, no calf tenderness noted. No clubbing or cyanosis. negative pedal edema noted NEUROLOGICAL: Focused neurological exam showed no significant neurologic deficit. Normal speech, no focal weakness appreciated. PSYCH: Normal mood, normal affect. Judgment and insight within normal limits. SKIN: No significant ecchymosis, skin is noted to be warm. MUSCULOSKELETAL EXAM: No significant acute joint swelling noted. Results Laboratory Results: 04/27/18 05:49 04/25/18 04:39 04/27/18 04/27/18 05:35 05:49 WBC 6.6 RBC 4.50 Hgb 15.1 Hct 42.9 MCV 95 MCH 33.7 H MCHC 35.3 RDW 12.3 Plt Count 200 Urine Color YELLOW Urine Appearance CLEAR Urine pH 7.0 Ur Specific [place] 1.006 Urine Protein NEGATIVE Urine Glucose (UA) NEGATIVE Urine Ketones NEGATIVE Urine Blood NEGATIVE Urine Nitrite NEGATIVE Ur Leukocyte Esterase NEGATIVE Urine WBC (Auto) 0 04/24/18 04/24/18 04/24/18 02:34 02:34 08:20 Creatine Kinase 100 84 CK-MB (CK-2) 1.08 Troponin I 0.032 04/24/18 04/24/18 04/24/18 08:20 14:22 14:22 Creatine Kinase 93 CK-MB (CK-2) 0.97 0.93 Troponin I 0.022 < 0.012 EKG Comments: Telemetry shows sinus rhythm no sustained tachycardia or bradycardia noted. Impressions: Chest X-Ray 04/23/18 20:18 FINDINGS/IMPRESSION: Normal cardiomediastinal silhouette. Lungs are clear. No pleural effusion or pneumothorax is seen. No acute osseous findings. Assessment & Plan - Diagnosis (1) Atrial fibrillation with rapid ventricular response Is this a current diagnosis for this admission?: Yes (2) Alcohol dependence Qualifiers: Substance use status: with intoxication Complication of substance-induced condition: with unspecified complication Qualified Code(s): F10.229 - Alcohol dependence with intoxication, unspecified Is this a current diagnosis for this admission?: Yes (3) Elevated troponin Is this a current diagnosis for this admission?: Yes (4) Hypoxemia Is this a current diagnosis for this admission?: Yes (5) Opiate overdose Qualifiers: Encounter type: initial encounter Injury intent: accidental or unintentional Qualified Code(s): T40.601A - Poisoning by unspecified narcotics , accidental (unintentional), initial encounter Is this a current diagnosis for this admission?: Yes - Notes Notes: Patient has been stable for last 48 hours from cardiac standpoint. Will sign off. Patient has been advised to quit smoking and drinking but apparently has no plans to do that. Atrial fibrillation with rapid ventricular response: Patient spontaneously converted to sinus rhythm. Most likely related to alcohol intoxication which can cause transient atrial muscle myopathy. Patient has reverted back to sinus rhythm. No need for chronic anticoagulation or acute anticoagulation at this point. Also there is no need for antiarrhythmics. Alcohol dependence: Patient has been advised to quit smoking and drinking. Elevated troponin I: These are felt to be not significant. No need for ischemia workup at this point in the absence of any chest pain. Patient will benefit from risk factor modification. Hypoxemia: Improved. Patient should quit smoking. Opiate overdose: Patient did receive Narcan. Side effects discussed. - Time Time with patient: 15-25 minutes - More than 50% of the time spent coordinating care, discussing management plans with involved caregivers. Management plans discussed with involved personnels. Medical decision making was of moderate to high complexity, patient's has multiple comorbidities. Will sign off please reconsult if needed. Medications reviewed and adjusted accordingly: Yes
[2018-04-28] MEDS: ENOXAPARIN SODIUM INJ 80 MG/0.8 ML DISP.SYRIN SUBCUT SCH ×2 (00:21→00:23)
[2018-04-28] MEDS: LORAZEPAM 1 MG TABLET (TAPER DOSING) PO SCH (05:04)
[2018-04-28] MEDS: FOLIC ACID 1 MG TABLET PO SCH (11:39)
[2018-04-28] MEDS: DOCUSATE SODIUM 100 MG CAPSULE PO SCH (11:40)
[2018-04-28] MEDS: DILTIAZEM HCL 180 MG CAPSULE.CR PO SCH (11:40)
[2018-04-28] MEDS: THIAMINE HCL 100 MG TABLET PO SCH (11:41)
[2018-04-28] MEDS: LORAZEPAM INJ 2 MG/1 ML VIAL IV PRN (11:41)
[2018-04-28 13:20] VITALS: BP 139/78
--- NOTE | 2018-04-28 17:41 | PDOC DISCHARGE SUMMARY ---
General - Admit/Disc Date/PCP Admission Date/Primary Care Provider: 04/24/18 00:44 Discharge Date: 04/28/18 - Discharge Diagnosis (1) Acute respiratory failure with hypoxemia Is this a current diagnosis for this admission?: Yes Summary: Resolved abruptly (2) Atrial fibrillation with rapid ventricular response Is this a current diagnosis for this admission?: Yes Summary: Spontaneously converted back to normal sinus rhythm. He was seen in consultation by cardiology who recommended no antiarrhythmics, no anticoagulation, and no further ischemic workup. (3) Opiate overdose Is this a current diagnosis for this admission?: Yes Summary: Apparently he found a bag of white powder in a parking lot and snorted some of it assuming that it was cocaine. (4) Alcohol dependence Is this a current diagnosis for this admission?: Yes Summary: He was put on an alcohol withdrawal protocol, but said that he had no plans whatsoever to quit drinking and so we let him go home. - Additional Information Resuscitation Status: Full Code Discharge Diet: Cardiac Discharge Activity: Activity As Tolerated, Balance Activity w/Rest Home Medications: No Home Medications 04/24/18 History of Present Illness History of Present Illness: ARLENE BAGLEY is a 57 year old male with a past medical history of tobacco, alcohol and polysubstance abuse who presents via EMS for opiate overdose after being found unresponsive. Patient received a total of 3 doses of Narcan is awake and alert but intoxicated. He is found hypoxic, A. fib with RVR, started on BiPAP and IV Cardizem. He denies any medications, chest pain and is referred to the hospitalist for admission. Patient denies previous episode of atrial fibrillation. Hospital Course Hospital Course: He responded to Narcan and his breathing improved. He was monitored and did not show any signs of decompensation. He was put on an alcohol withdrawal protocol but has decided that he is not going to quit drinking and so he was discharged home today. He had an episode of atrial fibrillation with rapid ventricular response but spontaneously converted back to normal sinus rhythm. Cardiology saw him in consultation and did not recommend that he be sent home on any antiarrhythmics, anticoagulation, or any need for ischemic workup. Physical Exam Vital Signs: Temp Pulse Resp BP Pulse Ox 97.6 F 93 16 139/78 H 99 04/28/18 13:19 04/28/18 13:19 04/28/18 13:19 04/28/18 13:19 04/28/18 13:19 Intake & Output 04/27/18 04/28/18 04/29/18 06:59 06:59 06:59 Intake Total 2317 1744 Output Total 2674 1825 Balance -358 -81 Weight 60.6 kg 59.4 kg General appearance: PRESENT: mild distress, thin Head exam: PRESENT: atraumatic, normocephalic Eye exam: ABSENT: conjunctival injection, scleral icterus Mouth exam: PRESENT: moist Respiratory exam: PRESENT: clear to auscultation luh, unlabored. ABSENT: rales , rhonchi, wheezes Cardiovascular exam: PRESENT: RRR. ABSENT: systolic murmur Pulses: PRESENT: normal radial pulses Rectal exam: PRESENT: deferred Gentrourinary exam: ABSENT: indwelling catheter Extremities exam: ABSENT: pedal edema Neurological exam: PRESENT: alert, awake, oriented to person, oriented to place. ABSENT: oriented to situation Psychiatric exam: PRESENT: agitated, flat affect Skin exam: PRESENT: dry, intact, warm. ABSENT: jaundice Results Laboratory Results: 04/27/18 05:49 04/25/18 04:39 04/28/18 04:30 Stool Occult Blood NEGATIVE 04/24/18 04/24/18 04/24/18 02:34 02:34 08:20 Creatine Kinase 100 84 CK-MB (CK-2) 1.08 Troponin I 0.032 04/24/18 04/24/18 04/24/18 08:20 14:22 14:22 Creatine Kinase 93 CK-MB (CK-2) 0.97 0.93 Troponin I 0.022 < 0.012 Impressions: Chest X-Ray 04/23/18 20:18 FINDINGS/IMPRESSION: Normal cardiomediastinal silhouette. Lungs are clear. No pleural effusion or pneumothorax is seen. No acute osseous findings. Qualifiers - * PATIENT BEING DISCHARGED WITH ANY OF THE FOLLOWING DIAGNOSIS: No
[2018-04-28] MEDS ORDERED: LORAZEPAM 1 MG TABLET PO SCH (18:00)
== END 2018-04-28 13:43 | disposition home or self-care (01) | DRG 917 ==
LOC: ER 18:56 → EH 04-24 00:44 → 3S 04-24 10:24
PROVIDERS: ADMIT Internal Medicine; ATTEND Internal Medicine
PROC: 5A09357 Assistance with Respiratory Ventilation, Less than 24 Consecutive Hours, Continuous Positive Airway Pressure (ICD-10-PCS; principal; 2018-04-24)
PROC: 3E0F73Z Introduction of Anti-inflammatory into Respiratory Tract, Via Natural or Artificial Opening (ICD-10-PCS; 2018-04-24)
PROC: 3E02340 Introduction of Influenza Vaccine into Muscle, Percutaneous Approach (ICD-10-PCS; 2018-04-28)
DX: T40.2X1A Poisoning by other opioids, accidental (unintentional), initial encounter (principal); J96.01 Acute respiratory failure with hypoxia; I48.91 Unspecified atrial fibrillation; Y90.6 Blood alcohol level of 120-199 mg/100 ml; F10.229 Alcohol dependence with intoxication, unspecified; F17.210 Nicotine dependence, cigarettes, uncomplicated; M19.90 Unspecified osteoarthritis, unspecified site; Z23 Encounter for immunization; Z83.6 Family history of other diseases of the respiratory system
CPT/HCPCS: 36415; 71045; 80048; 80053; 80307; 81001; 82272; 82550; 82553; 83036; 83735; 84443; 84484; 85025; 85027; 90686; 93005; 93010; 93306; 94660; 96361; 96365; 96366; 96368; 96375; 99291; J1650; J2060; J2310; J3411; J3475; J3480; J3490; J7030; J7050

== ENCOUNTER 2019-03-26 17:52 | Inpatient (IN) | payer SELFPAY ==
[2019-03-26] MEDS ORDERED: DILTIAZEM HCL INJ 25 MG/5 ML VIAL IV ONE (18:16)
[2019-03-26] MEDS ORDERED: DILTIAZEM HCL/D5W 125 MG/125 ML RTUINJ IV PRN (18:16)
--- NOTE | 2019-03-26 18:46 | ER Document Report ---
ED General - General Chief Complaint: Seizure Stated Complaint: POSSIBLE SEIZURE Time Seen by Provider: 03/26/19 18:04 TRAVEL OUTSIDE OF THE [place] IN LAST 30 DAYS: No - HPI Notes: Patient is a 58-year-old male who presents to the emergency department for evaluation after a possible seizure. [place] He "fell out", hit his head, and exhibited seizure activity. This is not for seizure he has had. He is not on any seizure medications. He does admit to chronic alcoholism. He has not had any alcohol today. The patient states he has some mild pain in his head but otherwise denies any acute complaints or concerns. He denies any sensation of palpitations or chest pain. - Related Data Allergies/Adverse Reactions: No Known Allergies Allergy (Unverified 02/02/18 13:25) Home Medications: none Past Medical History - General Information source: Patient - Social History Smoking Status: Current Every Day Smoker Frequency of alcohol use: Heavy Drug Abuse: Marijuana, Methamphetamine Family History: Reviewed & Not Pertinent, COPD - Past Medical History Cardiac Medical History: Denies: Hx Atrial Fibrillation, Hx Congestive Heart Failure, Hx Coronary Artery Disease Pulmonary Medical History: Reports: Hx Bronchitis Neurological Medical History: Reports: Hx Seizures - Sounds as if from alcohol abuse Renal/ Medical History: Denies: Hx Peritoneal Dialysis Musculoskeletal Medical History: Reports Hx Arthritis Psychiatric Medical History: Denies: Hx Depression Review of Systems - Review of Systems Constitutional: See HPI EENT: No symptoms reported Cardiovascular: No symptoms reported Respiratory: No symptoms reported Gastrointestinal: No symptoms reported Genitourinary: No symptoms reported Musculoskeletal: No symptoms reported Skin: No symptoms reported Neurological/Psychological: See HPI Physical Exam - Vital signs Vitals: Pulse Ox 96 03/26/19 18:18 - Notes Notes: This is a 58-year-old male who appears older than his stated age, no acute distress. Vital signs reviewed, please refer to chart. Head is normocephalic. He has a small ecchymosis, proximal 2 cm, on the posterior parietal right skull without skin break. Pupils equal round, reactive to light. Neck is supple without meningismus. Heart is irregularly irregular. Lungs are clear to auscultation bilaterally. Abdomen is soft, nontender, normoactive bowel sounds throughout. Extremities without cyanosis, clubbing. Posterior calves are nontender. Peripheral pulses are equal. Skin is warm and dry. Patient is awake, alert, oriented x3. Cranial nerves II - XII are grossly intact without focal neurological deficits. Strength is plus 5 out of 5 bilateral upper and l ower extremities. Sensation is intact. Reflexes symmetrical. Intact myrujk-[id number], rapid alternating movements, [id number]. Course - Re-evaluation Re-evalutation: 03/26/19 20:15 Patient presents emergency department for evaluation after a seizure. He was found to be read in rapid atrial fibrillation following this. The patient relates that he has had seizures in the past but is not on seizure medication. My suspicion is that this seizure secondary to alcohol withdrawal. He is awake and alert now. He did receive Versed via squad. Laboratory investigations here revealed hypokalemia, hypomagnesemia. He was given IV banana bag. He was started on Cardizem for his rapid atrial fibrillation and his heart rate did respond. CT scan failed to reveal any acute intracranial bleeding or fracture. I spoke with Dr. Lopez, he will admit the patient for further care. - Vital Signs Vital signs: Temp Pulse Resp BP Pulse Ox 98.1 F 24 H 144/83 H 98 03/26/19 19:32 03/26/19 19:32 03/26/19 19:32 03/26/19 19:32 - Laboratory Result Diagrams: 03/26/19 18:30 03/26/19 18:30 Laboratory results interpreted by me: 03/26/19 03/26/19 03/26/19 18:30 18:30 18:30 RBC 4.23 L Lymph % (Auto) 7.5 L Seg Neutrophils % 83.2 H Sodium 136.1 L Potassium 3.3 L Glucose 114 H Magnesium 1.2 L* AST 576 H Creatine Kinase 463 H Urine Glucose (UA) 50 H Urine Blood SMALL H - EKG Interpretation by Me Additional EKG results interpreted by me: 03/26/19 20:16 Atrial fibrillation with a rate of 149 bpm. Normal axis, prolonged QT interval. Nonspecific ST changes, but no acute changes concerning for ischemia or infarction. Discharge - Discharge Clinical Impression: Atrial fibrillation with rapid ventricular response, Seizure, Hypomagnesemia, Hypokalemia Alcohol dependence Qualifiers: Substance use status: in withdrawal Complication of substance-induced cond ition: with unspecified complication Qualified Code(s): F10.239 - Alcohol dependence with withdrawal, unspecified Condition: Stable Disposition: ADMITTED INPATIENT Admitting Provider: John (Hospitalist) Unit Admitted: [facility]
[2019-03-26 18:59] LABS: ABSOLUTE LYMPHOCYTES (AUTO) 0.6 10^3/uL (0.5-4.7); ABSOLUTE MONOCYTES (AUTO) 0.7 10^3/uL (0.1-1.4); ABSOLUTE NEUT (AUTO) 6.6 10^3/uL (1.7-8.2); BASOPHILS % (AUTO) 0.3 % (0-2); EOSINOPHILS % (AUTO) 0.3 % (0-6); HEMATOCRIT 40.8 % (37.9-51.0); HEMOGLOBIN 13.8 g/dL (13.5-17.0); LYMPHOCYTES % (AUTO) 7.5 % (13-45); MEAN CORPUSCULAR HEMOGLOBIN 32.6 pg (27.0-33.4); MEAN CORPUSCULAR HGB CONC 33.8 g/dL (32.0-36.0); MEAN CORPUSCULAR VOLUME 96 fl (80-97); MONOCYTES % (AUTO) 8.7 % (3-13); PLATELET COUNT 152 10^3/uL (150-450); RED BLOOD COUNT 4.23 10^6/uL (4.35-5.55); RED CELL DISTRIBUTION WIDTH 13.8 % (11.5-14.0); SEGMENTED NEUTROPHILS % (AUTO) 83.2 % (42-78); TOTAL CELLS COUNTED % (AUTO) 100 %
[2019-03-26 19:07] LABS: APPEARANCE,URINE CLEAR; BILIRUBIN,URINE NEGATIVE (NEGATIVE); COLOR,URINE STRAW; GLUCOSE, URINE 50 mg/dL (NEGATIVE); KETONES,URINE NEGATIVE (NEGATIVE); LEUKOCYTE ESTERASE,URINE NEGATIVE (NEGATIVE); NITRITE,URINE NEGATIVE (NEGATIVE); PROTEIN,URINE NEGATIVE (NEGATIVE); URINE SPECIFIC GRAVITY 1.006; UROBILINOGEN,URINE NEGATIVE mg/dL (<2.0)
[2019-03-26 19:14] LABS: ALBUMIN 4.3 g/dL (3.5-5.0); ALKALINE PHOSPHATASE 78 U/L (38-126); ANION GAP 9 (5-19); ASPARTATE AMINO TRANSFERASE 576 U/L (17-59); BILIRUBIN,DIRECT 0.3 mg/dL (0.0-0.4); BLOOD UREA NITROGEN 9 mg/dL (7-20); CALCIUM 8.7 mg/dL (8.4-10.2); CARBON DIOXIDE 25 mmol/L (22-30); CHLORIDE 102 mmol/L (98-107); CREATINE KINASE 463 U/L (55-170); GLUCOSE 114 mg/dL (75-110); POTASSIUM 3.3 mmol/L (3.6-5.0)
[2019-03-26 19:15] LABS: ALCOHOL < 10 mg/dL (NONE DETECTED)
--- NOTE | 2019-03-26 19:16 | RADIOLOGY REPORT (SQ) ---
EXAM DESCRIPTION: CT HEAD WITHOUT COMPLETED DATE/TIME: 03/26/2019 6:49 pm REASON FOR STUDY: Seizure, head injury COMPARISON: 11/06/2006 TECHNIQUE: Axial images acquired through the brain without intravenous contrast. Images reviewed wit h bone, brain and subdural windows. Images stored on PACS. All CT scanners at this facility use dose modulation, iterative reconstruction, and/or weight based d osing when appropriate to reduce radiation dose to as low as reasonably achievable (ALARA). [facility]: Dose Right [facility]: CareDose [facility]: Dose Right [facility]: Teradose 4D [facility]: Smart [employer] RADIATION DOSE: CT Rad equipment meets quality standard of care and radiation dose reduction techniq ues were employed. CTDIvol: 53.2 mGy. DLP: 1044 mGy-cm.. LIMITATIONS: None. FINDINGS: VENTRICLES: Normal size and contour. CEREBRUM: No masses. No hemorrhage. No midline shift. Age appropriate white matter. No evidence for a cute infarction. CEREBELLUM: No masses. No hemorrhage. No alteration of density. No evidence for acute infarction. EXTRA-AXIAL SPACES: No fluid collections. ORBITS AND GLOBE: No intra- or extraconal masses. Normal contour of globe without masses. CALVARIUM: No fracture. PARANASAL SINUSES: No fluid or mucosal thickening. SOFT TISSUES: No mass or hematoma. OTHER: No other significant finding. IMPRESSION: NO ACUTE INTRACRANIAL FINDINGS. EVIDENCE OF ACUTE STROKE: NO. TECHNICAL DOCUMENTATION: JOB ID: [id number] [id number] Quality ID # [id number]: Final reports with documentation of one or more dose reduction techniques (e.g., Au tomated exposure control, adjustment of the mA and/or kV according to patient size, use of iterative reconstruction technique) 2010 [employer]- All Rights Reserved Reading location - IP/workstation name: [email or web address]
[2019-03-26 19:19] LABS: URINE AMPHETAMINES SCREEN UNCONFIRMED POSITIVE; URINE BARBITURATES SCREEN NEGATIVE; URINE BENZODIAZEPINES SCREEN UNCONFIRMED POSITIVE; URINE COCAINE SCREEN NEGATIVE; URINE MARIJUANA (THC) SCREEN NEGATIVE; URINE METHADONE SCREEN NEGATIVE; URINE PHENCYCLIDINE SCREEN NEGATIVE
[2019-03-26 19:25] LABS: CREATINE KINASE MB 2.9 ng/mL (<4.55); TROPONIN I 0.016 ng/mL
[2019-03-26] MEDS: NORMAL SALINE 1000 ML 1,000 ML with POTASSIUM CHLORIDE 20 MEQ, MAGNESIUM SULFATE 8 MEQ,... IV SCH ×5 (19:48)
[2019-03-26] MEDS ORDERED: NORMAL SALINE 1000 ML 1,000 ML IV SCH (20:15)
[2019-03-26] MEDS ORDERED: MAGNESIUM HYDROXIDE SUSP 30 ML UDCUP PO PRN (20:15)
[2019-03-26] MEDS ORDERED: MAG HYDROX/AL HYDROX/SIMETH SUSP 30 ML UDCUP PO PRN (20:15)
[2019-03-26] MEDS ORDERED: FOLIC ACID 1 MG TABLET PO ONE (20:18)
[2019-03-26] MEDS: MAGNESIUM SULFATE/D5W 1 GM/100 ML RTUPB IV SCH ×2 (21:32→22:45)
[2019-03-26 21:43] LABS: CREATINE KINASE MB 3.27 ng/mL (<4.55); TROPONIN I 0.027 ng/mL
[2019-03-26] MEDS: DILTIAZEM HCL 60 MG TABLET PO SCH (21:43)
[2019-03-26] MEDS: THIAMINE HCL 100 MG TABLET PO SCH (21:43)
[2019-03-26 21:46] LABS: INTERNATIONAL RATION (INR) 0.96; PROTHROMBIN TIME 12.8 SEC (11.4-15.4)
[2019-03-26 21:47] LABS: PARTIAL THROMBOPLASTIN TIME 22.8 SEC (23.5-35.8)
[2019-03-26] MEDS: HEPARIN SOD (PORCINE) 5,000 UNIT/ML 1 ML VIAL SUBCUT SCH (21:53)
[2019-03-26] MEDS: DIAZEPAM 5 MG TABLET PO SCH (21:54)
[2019-03-26] MEDS: NORMAL SALINE 1000 ML 1,000 ML IV PRN (22:07)
--- NOTE | 2019-03-26 23:10 | EKG REPORT ---
SEVERITY:- ABNORMAL ECG - ATRIAL FIBRILLATION, V-RATE 109-179 PROLONGED QT INTERVAL : Confirmed by: Kayy Mantilla MD 26-Mar-2019 23:09:56
[2019-03-27] MEDS: MAGNESIUM SULFATE/D5W 1 GM/100 ML RTUPB IV SCH (00:14)
[2019-03-27 02:48] LABS: ABSOLUTE EOSINOPHILS # (AUTO) 0.1 10^3/uL (0.0-0.6); ABSOLUTE LYMPHOCYTES (AUTO) 1.4 10^3/uL (0.5-4.7); ABSOLUTE MONOCYTES (AUTO) 0.8 10^3/uL (0.1-1.4); ABSOLUTE NEUT (AUTO) 3.1 10^3/uL (1.7-8.2); BASOPHILS % (AUTO) 0.6 % (0-2); EOSINOPHILS % (AUTO) 2.5 % (0-6); HEMATOCRIT 38.4 % (37.9-51.0); HEMOGLOBIN 13.1 g/dL (13.5-17.0); LYMPHOCYTES % (AUTO) 25.2 % (13-45); MEAN CORPUSCULAR HGB CONC 34.1 g/dL (32.0-36.0); MEAN CORPUSCULAR VOLUME 97 fl (80-97); MONOCYTES % (AUTO) 14.7 % (3-13); PLATELET COUNT 135 10^3/uL (150-450); RED BLOOD COUNT 3.97 10^6/uL (4.35-5.55); RED CELL DISTRIBUTION WIDTH 13.5 % (11.5-14.0); TOTAL CELLS COUNTED % (AUTO) 100 %; WHITE BLOOD COUNT 5.4 10^3/uL (4.0-10.5)
[2019-03-27 03:14] LABS: ALBUMIN 3.7 g/dL (3.5-5.0); ALKALINE PHOSPHATASE 73 U/L (38-126); ANION GAP 8 (5-19); ASPARTATE AMINO TRANSFERASE 400 U/L (17-59); BILIRUBIN,DIRECT 0.4 mg/dL (0.0-0.4); BILIRUBIN,TOTAL 1.5 mg/dL (0.2-1.3); BLOOD UREA NITROGEN 6 mg/dL (7-20); CALCIUM 7.9 mg/dL (8.4-10.2); CARBON DIOXIDE 22 mmol/L (22-30); CHLORIDE 106 mmol/L (98-107); GLUCOSE 90 mg/dL (75-110); POTASSIUM 3.4 mmol/L (3.6-5.0); TOTAL PROTEIN 6.3 g/dL (6.3-8.2)
[2019-03-27 03:25] LABS: CREATINE KINASE MB 3.26 ng/mL (<4.55); TROPONIN I 0.032 ng/mL
--- NOTE | 2019-03-27 05:29 | PDOC H&P ---
History of Present Illness Admission Date/PCP: 03/26/19 20:34 Patient complains of: Seizure History of Present Illness: ARLENE BAGLEY is a 58 year old male with a past medical history of polysubstance abuse, tobacco and alcohol dependence and alcohol withdrawal seizures. He presents to the emergency room after a seizure resulting in a fall from standing and small hematoma without laceration to the posterior right parietal. He is also found to have new A. fib with RVR, hypomagnesemia, hypokalemia and referred to the hospitalist for admission. Patient is acutely intoxicated and admits to amphetamine use and change of alcohol habit. He denies recent medication use. He denies chest pain headache shortness of breath nausea vomiting or fever. Past Medical History Cardiac Medical History: Denies: Atrial Fibrillation, Congestive Heart Failure, Coronary Artery Disease Pulmonary Medical History: Reports: Bronchitis Neurological Medical History: Reports: Seizures - Sounds as if from alcohol abuse Musculoskeltal Medical History: Reports: Arthritis Psychiatric Medical History: Reports: Alcohol Dependency, Substance Abuse, Tobacco Dependency Denies: Depression Past Surgical History Past Surgical History: Reports: None Social History Information Source: Patient, [facility] Records Smoking Status: Current Every Day Smoker Frequency of Alcohol Use: Heavy Hx Recreational Drug Use: Yes Drugs: Cocaine, Heroin, Marijuana, Other - Amphetamine Hx Prescription Drug Abuse: No - Advance Directive Resuscitation Status: Full Code Family History Family History: COPD, Hypertension Parental Family History Reviewed: Yes Children Family History Reviewed: Yes Sibling(s) Family History Reviewed.: Yes Medication/Allergy Home Medications: No Home Medications 04/24/18 Allergies/Adverse Reactions: No Known Allergies Allergy (Unverified 02/02/18 13:25) Review of Systems Constitutional: ABSENT: chills, fever(s), headache(s), weight gain, weight loss Eyes: ABSENT: visual disturbances Ears: ABSENT: hearing changes Cardiovascular: ABSENT: chest pain, dyspnea on exertion, edema, orthropnea, palpitations Respiratory: ABSENT: cough, hemoptysis Gastrointestinal: ABSENT: abdominal pain, constipation, diarrhea, hematemesis, hematochezia, nausea, vomiting Genitourinary: ABSENT: dysuria, hematuria Musculoskeletal: ABSENT: joint swelling Integumentary: ABSENT: rash, wounds Neurological: ABSENT: abnormal gait, abnormal speech, confusion, dizziness, focal weakness, syncope Psychiatric: ABSENT: anxiety, depression, homidical ideation, suicidal ideation Endocrine: ABSENT: cold intolerance, heat intolerance, polydipsia, polyuria Hematologic/Lymphatic: ABSENT: easy bleeding, easy bruising Physical Exam Vital Signs: Temp Pulse Resp BP Pulse Ox 98.2 F 83 16 119/74 95 03/26/19 23:49 03/26/19 23:49 03/26/19 23:49 03/26/19 23:49 03/26/19 23:49 Intake & Output 03/25/19 03/26/19 03/27/19 11:59 11:59 11:59 Intake Total 1391 Output Total 0 Balance 1391 Weight 71.8 kg General appearance: PRESENT: cooperative, disheveled, mild distress, well- developed, other - Appears chronically ill and much older than stated age Head exam: PRESENT: atraumatic, normocephalic Head Image: 1 - 1 cm hematoma without induration or laceration Eye exam: PRESENT: conjunctiva pink, EOMI, PERRLA. ABSENT: scleral icterus Ear exam: PRESENT: normal external ear exam Mouth exam: PRESENT: moist, tongue midline Neck exam: ABSENT: carotid bruit, JVD, lymphadenopathy, thyromegaly Respiratory exam: PRESENT: crackles, prolonged expiratory phas, symmetrical, tachypnea. ABSENT: rhonchi Cardiovascular exam: PRESENT: +S1, +S2, tachycardia Pulses: PRESENT: normal dorsalis pedis pul Vascular exam: PRESENT: normal capillary refill GI/Abdominal exam: PRESENT: normal bowel sounds, soft. ABSENT: distended, guarding, mass, organolmegaly, rebound, tenderness Rectal exam: PRESENT: deferred Extremities exam: PRESENT: full ROM. ABSENT: calf tenderness, clubbing, pedal edema Neurological exam: PRESENT: alert, awake, oriented to person, oriented to place, oriented to time, oriented to situation, CN II-XII grossly intact. ABSENT: motor sensory deficit Psychiatric exam: PRESENT: appropriate affect, normal mood. ABSENT: homicidal ideation, suicidal ideation Skin exam: PRESENT: dry, intact, warm. ABSENT: cyanosis, rash Results Laboratory Results: 03/27/19 02:42 03/27/19 02:42 03/26/19 03/26/19 03/26/19 18:30 18:30 18:30 WBC 8.0 RBC 4.23 L Hgb 13.8 Hct 40.8 MCV 96 MCH 32.6 MCHC 33.8 RDW 13.8 Plt Count 152 Seg Neutrophils % 83.2 H Sodium 136.1 L Potassium 3.3 L Chloride 102 Carbon Dioxide 25 Anion Gap 9 BUN 9 Creatinine 0.75 Est GFR ( Amer) > 60 Glucose 114 H Calcium 8.7 Phosphorus Magnesium 1.2 L* Total Bilirubin 1.0 AST 576 H Alkaline Phosphatase 78 Total Protein 7.0 Albumin 4.3 TSH 1.45 Urine Color Urine Appearance Urine pH Ur Specific [place] Urine Protein Urine Glucose (UA) Urine Ketones Urine Blood Urine Nitrite Ur Leukocyte Esterase Urine WBC (Auto) Urine RBC (Auto) 03/26/19 03/26/19 03/27/19 18:30 20:45 02:42 WBC 5.4 RBC 3.97 L Hgb 13.1 L Hct 38.4 MCV 97 MCH 33.0 MCHC 34.1 RDW 13.5 Plt Count 135 L Seg Neutrophils % 57.0 Sodium Potassium Chloride Carbon Dioxide Anion Gap BUN Creatinine Est GFR ( Amer) Glucose Calcium Phosphorus 3.3 Magnesium Total Bilirubin AST Alkaline Phosphatase Total Protein Albumin TSH Urine Color STRAW Urine Appearance CLEAR Urine pH 6.0 Ur Specific [place] 1.006 Urine Protein NEGATIVE Urine Glucose (UA) 50 H Urine Ketones NEGATIVE Urine Blood SMALL H Urine Nitrite NEGATIVE Ur Leukocyte Esterase NEGATIVE Urine WBC (Auto) 0 Urine RBC (Auto) 0 03/27/19 02:42 WBC RBC Hgb Hct MCV MCH MCHC RDW Plt Count Seg Neutrophils % Sodium 136.2 L Potassium 3.4 L Chloride 106 Carbon Dioxide 22 Anion Gap 8 BUN 6 L Creatinine 0.65 Est GFR ( Amer) > 60 Glucose 90 Calcium 7.9 L Phosphorus Magnesium 2.6 H D Total Bilirubin 1.5 H AST 400 H Alkaline Phosphatase 73 Total Protein 6.3 Albumin 3.7 TSH Urine Color Urine Appearance Urine pH Ur Specific [place] Urine Protein Urine Glucose (UA) Urine Ketones Urine Blood Urine Nitrite Ur Leukocyte Esterase Urine WBC (Auto) Urine RBC (Auto) 03/26/19 03/26/19 03/26/19 18:30 18:30 20:45 Creatine Kinase 463 H 611 H CK-MB (CK-2) 2.90 Troponin I 0.016 03/26/19 03/27/19 03/27/19 20:45 02:42 02:42 Creatine Kinase 677 H CK-MB (CK-2) 3.27 3.26 Troponin I 0.027 0.032 Impressions: Head CT 03/26/19 18:36 IMPRESSION: NO ACUTE INTRACRANIAL FINDINGS. EVIDENCE OF ACUTE STROKE: NO. Assessment and Plan - Diagnosis (1) Atrial fibrillation with rapid ventricular response Is this a current diagnosis for this admission?: Yes Plan: Likely secondary to amphetamine and alcohol withdrawal. Transition IV Cardizem to p.o. Discuss anticoagulation prior to initiation given high risk. Follow-up reticulocyte enzymes. (2) Alcohol withdrawal seizure Is this a current diagnosis for this admission?: Yes Plan: Secondary to alcohol withdrawal, thiamine and folate, scheduled Valium with PRN Ativan (3) Alcohol dependence Qualifiers: Substance use status: in withdrawal Complication of substance-induced condition: with unspecified complication Qualified Code(s): F10.239 - Alcohol dependence with withdrawal, unspecified Is this a current diagnosis for this admission?: Yes Plan: Thiamine and folate, supportive care (4) Hypokalemia Is this a current diagnosis for this admission?: Yes Plan: Correct hypomagnesemia, potassium as needed, follow-up chemistry (5) Hypomagnesemia Is this a current diagnosis for this admission?: Yes Plan: Secondary to alcoholism, magnesium ordered follow-up needs and level - Time Time Spent with patient: 35 or more minutes - Inpatient Certification Medical Necessity: Need Close Monitoring Due to Risk of Patient Decompensation
[2019-03-27] MEDS: HEPARIN SOD (PORCINE) 5,000 UNIT/ML 1 ML VIAL SUBCUT SCH ×3 (06:33→22:24)
[2019-03-27] MEDS: DILTIAZEM HCL 60 MG TABLET PO SCH ×3 (06:33→22:22)
[2019-03-27 09:25] LABS: CREATINE KINASE MB 3.1 ng/mL (<4.55); TROPONIN I 0.026 ng/mL
[2019-03-27] MEDS: NORMAL SALINE 1000 ML 1,000 ML IV PRN (09:33)
[2019-03-27] MEDS: DOCUSATE SODIUM 100 MG CAPSULE PO SCH ×2 (09:33→17:36)
[2019-03-27] MEDS: DIAZEPAM 5 MG TABLET PO SCH ×2 (09:33→22:22)
[2019-03-27] MEDS: THIAMINE HCL 100 MG TABLET PO SCH (09:33)
--- NOTE | 2019-03-27 15:53 | PDOC PROGRESS REPORT ---
Subjective Progress Note for:: 03/27/19 Subjective:: No adverse events overnight. No new complaints. The patient is a very poor historian, he was in the hospital about a year ago but he thought it was only a couple of months ago. He says he does not remember when his last drink was. He does not remember very much about having a seizure at work, at least that is what he says. Reason For Visit: AFIB ETOH W/D SZ Physical Exam Vital Signs: Temp Pulse Resp BP Pulse Ox 98.3 F 94 17 118/69 98 03/27/19 11:12 03/27/19 14:00 03/27/19 11:12 03/27/19 11:12 03/27/19 11:12 Intake & Output 03/26/19 03/27/19 03/28/19 06:59 06:59 06:59 Intake Total 2391 480 Output Total 425 Balance 1966 480 Weight 60.5 kg General appearance: PRESENT: no acute distress, cooperative, disheveled Teeth exam: PRESENT: poor dentation Respiratory exam: PRESENT: clear to auscultation luh, symmetrical, unlabored. ABSENT: accessory muscle use, chest wall tenderness, crackles, prolonged expiratory phas, rhonchi, tachypnea, wheezes Cardiovascular exam: PRESENT: irregular rhythm Pulses: PRESENT: normal carotid pulses Vascular exam: PRESENT: normal capillary refill GI/Abdominal exam: PRESENT: normal bowel sounds, soft. ABSENT: distended, guarding, rebound, tenderness Extremities exam: ABSENT: clubbing, pedal edema Musculoskeletal exam: PRESENT: normal inspection. ABSENT: deformity Neurological exam: PRESENT: awake, oriented to person, oriented to place Psychiatric exam: PRESENT: flat affect Skin exam: PRESENT: dry, warm Results Laboratory Results: 03/27/19 02:42 03/27/19 02:42 03/26/19 03/26/19 03/26/19 18:30 18:30 18:30 WBC 8.0 RBC 4.23 L Hgb 13.8 Hct 40.8 MCV 96 MCH 32.6 MCHC 33.8 RDW 13.8 Plt Count 152 Seg Neutrophils % 83.2 H Sodium 136.1 L Potassium 3.3 L Chloride 102 Carbon Dioxide 25 Anion Gap 9 BUN 9 Creatinine 0.75 Est GFR ( Amer) > 60 Glucose 114 H Calcium 8.7 Phosphorus Magnesium 1.2 L* Total Bilirubin 1.0 AST 576 H Alkaline Phosphatase 78 Total Protein 7.0 Albumin 4.3 TSH 1.45 Urine Color Urine Appearance Urine pH Ur Specific [place] Urine Protein Urine Glucose (UA) Urine Ketones Urine Blood Urine Nitrite Ur Leukocyte Esterase Urine WBC (Auto) Urine RBC (Auto) 03/26/19 03/26/19 03/27/19 18:30 20:45 02:42 WBC 5.4 RBC 3.97 L Hgb 13.1 L Hct 38.4 MCV 97 MCH 33.0 MCHC 34.1 RDW 13.5 Plt Count 135 L Seg Neutrophils % 57.0 Sodium Potassium Chloride Carbon Dioxide Anion Gap BUN Creatinine Est GFR ( Amer) Glucose Calcium Phosphorus 3.3 Magnesium Total Bilirubin AST Alkaline Phosphatase Total Protein Albumin TSH Urine Color STRAW Urine Appearance CLEAR Urine pH 6.0 Ur Specific [place] 1.006 Urine Protein NEGATIVE Urine Glucose (UA) 50 H Urine Ketones NEGATIVE Urine Blood SMALL H Urine Nitrite NEGATIVE Ur Leukocyte Esterase NEGATIVE Urine WBC (Auto) 0 Urine RBC (Auto) 0 03/27/19 02:42 WBC RBC Hgb Hct MCV MCH MCHC RDW Plt Count Seg Neutrophils % Sodium 136.2 L Potassium 3.4 L Chloride 106 Carbon Dioxide 22 Anion Gap 8 BUN 6 L Creatinine 0.65 Est GFR ( Amer) > 60 Glucose 90 Calcium 7.9 L Phosphorus Magnesium 2.6 H D Total Bilirubin 1.5 H AST 400 H Alkaline Phosphatase 73 Total Protein 6.3 Albumin 3.7 TSH Urine Color Urine Appearance Urine pH Ur Specific [place] Urine Protein Urine Glucose (UA) Urine Ketones Urine Blood Urine Nitrite Ur Leukocyte Esterase Urine WBC (Auto) Urine RBC (Auto) 03/26/19 03/26/19 03/26/19 18:30 18:30 20:45 Creatine Kinase 463 H 611 H CK-MB (CK-2) 2.90 Troponin I 0.016 03/26/19 03/27/19 03/27/19 20:45 02:42 02:42 Creatine Kinase 677 H CK-MB (CK-2) 3.27 3.26 Troponin I 0.027 0.032 03/27/19 03/27/19 08:32 08:32 Creatine Kinase 721 H CK-MB (CK-2) 3.10 Troponin I 0.026 Impressions: Head CT 03/26/19 18:36 IMPRESSION: NO ACUTE INTRACRANIAL FINDINGS. EVIDENCE OF ACUTE STROKE: NO. Assessment and Plan - Diagnosis (1) Alcohol withdrawal seizure Qualifiers: Complication of substance-induced condition: with delirium Qualified Code(s): F10.231 - Alcohol dependence with withdrawal delirium Is this a current diagnosis for this admission?: Yes Plan: We got him on some scheduled Valium with PRN Ativan to prevent further seizures. He is unsure about whether or not he wants to quit drinking. (2) Atrial fibrillation with rapid ventricular response Is this a current diagnosis for this admission?: Yes Plan: The last time he was here in April of last year, he was in atrial fibrillation, but he spontaneously reverted to a sinus rhythm. This time, he staying in atrial fibrillation. His troponins were elevated but this is likely because of his RVR and his seizure. He is not complaining of any chest pain at this time. Dr. Dupont saw him last time and did not recommend doing any further work-up on him. At this time, we will going to get an echocardiogram and a stress test. (3) Hypomagnesemia Is this a current diagnosis for this admission?: Yes Plan: Resolved (4) Elevated troponin Is this a current diagnosis for this admission?: Yes Plan: As noted above - Time Time Spent with patient: 25-34 minutes
[2019-03-27] MEDS: NICOTINE 21 MG/24 HR PATCH.TD24 TD PRN (17:36)
[2019-03-27] MEDS: NORMAL SALINE 1000 ML 1,000 ML with POTASSIUM CHLORIDE 20 MEQ, MAGNESIUM SULFATE 8 MEQ,... IV SCH ×5 (17:37)
[2019-03-28] MEDS: HEPARIN SOD (PORCINE) 5,000 UNIT/ML 1 ML VIAL SUBCUT SCH ×3 (06:23→22:24)
[2019-03-28] MEDS: DILTIAZEM HCL 60 MG TABLET PO SCH ×3 (06:33→22:14)
[2019-03-28] MEDS: DIAZEPAM 5 MG TABLET PO SCH ×2 (09:48→22:14)
[2019-03-28] MEDS: THIAMINE HCL 100 MG TABLET PO SCH (09:48)
[2019-03-28] MEDS: DOCUSATE SODIUM 100 MG CAPSULE PO SCH ×2 (09:49→17:17)
[2019-03-28] MEDS: ACETAMINOPHEN 325 MG TABLET PO PRN (13:12)
[2019-03-28] MEDS: LORAZEPAM INJ 2 MG/1 ML VIAL IV PRN (13:45)
--- NOTE | 2019-03-28 16:03 | PDOC PROGRESS REPORT ---
Subjective Progress Note for:: 03/28/19 Subjective:: No adverse events overnight. No new complaints. Vital signs been stable. Eating and drinking without difficulty. No outstanding signs or symptoms of withdrawal. Reason For Visit: AFIB ETOH W/D SZ Physical Exam Vital Signs: Temp Pulse Resp BP Pulse Ox 98.2 F 108 H 17 149/82 H 98 03/28/19 07:19 03/28/19 14:00 03/28/19 07:19 03/28/19 07:19 03/28/19 07:19 Intake & Output 03/27/19 03/28/19 03/29/19 06:59 06:59 06:59 Intake Total 2391 2863 360 Output Total 425 415 Balance 1966 2448 360 Weight 60.5 kg 62 kg General appearance: PRESENT: no acute distress, cooperative, disheveled Teeth exam: PRESENT: poor dentation Respiratory exam: PRESENT: clear to auscultation luh, symmetrical, unlabored. ABSENT: accessory muscle use, chest wall tenderness, crackles, prolonged expiratory phas, rhonchi, tachypnea, wheezes Cardiovascular exam: PRESENT: irregular rhythm Pulses: PRESENT: normal carotid pulses Vascular exam: PRESENT: normal capillary refill GI/Abdominal exam: PRESENT: normal bowel sounds, soft. ABSENT: distended, guarding, rebound, tenderness Extremities exam: ABSENT: clubbing, pedal edema Musculoskeletal exam: PRESENT: normal inspection. ABSENT: deformity Neurological exam: PRESENT: awake, oriented to person, oriented to place Psychiatric exam: PRESENT: flat affect Skin exam: PRESENT: dry, warm Results Laboratory Results: 03/27/19 02:42 03/27/19 02:42 03/26/19 03/26/19 03/26/19 18:30 18:30 20:45 Creatine Kinase 463 H 611 H CK-MB (CK-2) 2.90 Troponin I 0.016 03/26/19 03/27/19 03/27/19 20:45 02:42 02:42 Creatine Kinase 677 H CK-MB (CK-2) 3.27 3.26 Troponin I 0.027 0.032 03/27/19 03/27/19 08:32 08:32 Creatine Kinase 721 H CK-MB (CK-2) 3.10 Troponin I 0.026 Impressions: Head CT 03/26/19 18:36 IMPRESSION: NO ACUTE INTRACRANIAL FINDINGS. EVIDENCE OF ACUTE STROKE: NO. Assessment and Plan - Diagnosis (1) Alcohol withdrawal seizure Qualifiers: Complication of substance-induced condition: with delirium Qualified Code(s): F10.231 - Alcohol dependence with withdrawal delirium Is this a current diagnosis for this admission?: Yes Plan: We got him on some scheduled Valium with PRN Ativan to prevent further seizures. He is unsure about whether or not he wants to quit drinking. I cut back on his dose of of Valium and will monitor his response. (2) Atrial fibrillation with rapid ventricular response Is this a current diagnosis for this admission?: Yes Plan: We did switch him to p.o. Cardizem yesterday. He was getting it dosed every 8 hours, and he has had some intervals where his heart rate tries to bounce up, so we decreased it to every 6 hours. If this keeps him under good control we will transition him tomorrow morning to a long-acting formulation of Cardizem. His chads vASC score is only 1. (3) Hypomagnesemia Is this a current diagnosis for this admission?: Yes Plan: Resolved (4) Elevated troponin Is this a current diagnosis for this admission?: Yes Plan: No chest pain now, but with the elevated troponin and the recurrent episodes of atrial fibrillation, we will get an echocardiogram and a stress test - Time Time Spent with patient: 15-24 minutes
[2019-03-28] MEDS: NORMAL SALINE 1000 ML 1,000 ML with POTASSIUM CHLORIDE 20 MEQ, MAGNESIUM SULFATE 8 MEQ,... IV SCH ×5 (17:17)
[2019-03-29] MEDS: DILTIAZEM HCL 60 MG TABLET PO SCH ×3 (08:20→17:44)
[2019-03-29] MEDS ORDERED: DILTIAZEM HCL INJ 25 MG/5 ML VIAL ONE (09:07)
[2019-03-29] MEDS ORDERED: DILTIAZEM HCL INJ 25 MG/5 ML VIAL IV ONE (09:45)
[2019-03-29] MEDS: HEPARIN SOD (PORCINE) 5,000 UNIT/ML 1 ML VIAL SUBCUT SCH ×3 (11:12→21:42)
[2019-03-29] MEDS: THIAMINE HCL 100 MG TABLET PO SCH (11:16)
[2019-03-29] MEDS: DOCUSATE SODIUM 100 MG CAPSULE PO SCH ×2 (11:17→17:44)
[2019-03-29] MEDS: DIAZEPAM 5 MG TABLET PO SCH ×2 (11:17→21:42)
[2019-03-29] MEDS: NICOTINE 21 MG/24 HR PATCH.TD24 TD PRN (11:32)
[2019-03-29] MEDS ORDERED: REGADENOSON INJ 0.4 MG/5 ML DISP.SYRIN IV ONE (12:28)
[2019-03-29] MEDS: LORAZEPAM INJ 2 MG/1 ML VIAL IV PRN (14:35)
--- NOTE | 2019-03-29 16:59 | PDOC PROGRESS REPORT ---
Subjective Progress Note for:: 03/29/19 Subjective:: No adverse events overnight. No new complaints. His heart rate he got a little [id number] had increased the frequency of his oral Cardizem. He was asymptomatic. Reason For Visit: AFIB ETOH W/D SZ Physical Exam Vital Signs: Temp Pulse Resp BP Pulse Ox 97.3 F 120 H 18 148/90 H 99 03/29/19 00:00 03/29/19 07:00 03/29/19 00:00 03/29/19 00:00 03/29/19 00:00 Intake & Output 03/28/19 03/29/19 03/30/19 06:59 06:59 06:59 Intake Total 2863 1743 420 Output Total 415 Balance 2448 1743 420 Weight 62 kg 62.5 kg General appearance: PRESENT: no acute distress, cooperative, disheveled Teeth exam: PRESENT: poor dentation Respiratory exam: PRESENT: clear to auscultation luh, symmetrical, unlabored. ABSENT: accessory muscle use, chest wall tenderness, crackles, prolonged expiratory phas, rhonchi, tachypnea, wheezes Cardiovascular exam: PRESENT: irregular rhythm Pulses: PRESENT: normal carotid pulses Vascular exam: PRESENT: normal capillary refill GI/Abdominal exam: PRESENT: normal bowel sounds, soft. ABSENT: distended, guarding, rebound, tenderness Extremities exam: ABSENT: clubbing, pedal edema Musculoskeletal exam: PRESENT: normal inspection. ABSENT: deformity Neurological exam: PRESENT: awake, oriented to person, oriented to place Psychiatric exam: PRESENT: flat affect Skin exam: PRESENT: dry, warm Results Laboratory Results: 03/27/19 02:42 03/27/19 02:42 03/26/19 03/26/19 03/26/19 18:30 18:30 20:45 Creatine Kinase 463 H 611 H CK-MB (CK-2) 2.90 Troponin I 0.016 03/26/19 03/27/19 03/27/19 20:45 02:42 02:42 Creatine Kinase 677 H CK-MB (CK-2) 3.27 3.26 Troponin I 0.027 0.032 03/27/19 03/27/19 08:32 08:32 Creatine Kinase 721 H CK-MB (CK-2) 3.10 Troponin I 0.026 Impressions: Head CT 03/26/19 18:36 IMPRESSION: NO ACUTE INTRACRANIAL FINDINGS. EVIDENCE OF ACUTE STROKE: NO. Assessment and Plan - Diagnosis (1) Alcohol withdrawal seizure Qualifiers: Complication of substance-induced condition: with delirium Qualified Code(s): F10.231 - Alcohol dependence with withdrawal delirium Is this a current diagnosis for this admission?: Yes Plan: We got him on some scheduled Valium with PRN Ativan to prevent further seizures. He is unsure about whether or not he wants to quit drinking. (2) Atrial fibrillation with rapid ventricular response Is this a current diagnosis for this admission?: Yes Plan: We switched him over to p.o. Cardizem every 6 hours and his rate is better controlled. His chads vASC score is only 1. (3) Hypomagnesemia Is this a current diagnosis for this admission?: Yes Plan: Resolved (4) Elevated troponin Is this a current diagnosis for this admission?: Yes Plan: Stress test final result is still pending but unofficially it was negative. Echocardiogram is pending. - Time Time Spent with patient: 15-24 minutes
[2019-03-29] MEDS: NORMAL SALINE 1000 ML 1,000 ML with POTASSIUM CHLORIDE 20 MEQ, MAGNESIUM SULFATE 8 MEQ,... IV SCH ×5 (17:44)
--- NOTE | 2019-03-29 19:30 | XCELERA REPORT ---
[address] [address] Transthoracic Echocardiogram Report Name: ARLENE BAGLEY Age: 58 yrs Gender: Male : 1960 Patient Status: Inpatient Patient Location: [address] [place], [place] [id number] Study Date: 03/29/2019 10:18 AM Height: 69 in Weight: 133 lb BSA: 1.7 m2 Procedure: A two-dimensional transthoracic echocardiogram with color flow and Doppler was performed. Study Quality: Fair. Reason For Study: new-onset atrial fibrillation History: new-onset atrial fibrillation. Ordering Physician: DAVID PRABHAKAR Performed By: Betzy Jain Interpretation Summary The left ventricle is normal in size. There is normal left ventricular wall thickness. The left ventricular ejection fraction is within normal limits. LV EF is 60% The left ventricular wall motion is normal. There is no thrombus. No ASD , VSD , or PFO seen. The right ventricle is normal in size and function. The right atrium is normal. The left atrial size is normal. There is no evidence of mitral valve prolapse. There is no vegetation seen on the mitral valve. There is no mitral valve stenosis. There is a trace amount of mitral regurgitation There is no aortic valvular vegetation. There is aortic sclerosis without aortic stenosis. There is no LVOT obstruction. No aortic regurgitation is present. There is no tricuspid stenosis. There is a trace amount of tricuspid regurgitation Unable to calculate RVSP due to insufficient TR jet. There is no pulmonic valvular stenosis. There is no pulmonic valvular regurgitation. The aortic root is normal size. There is no pericardial effusion. MMode/2D Measurements & Calculations RVDd: 3.4 cm LVIDd: 3.9 cm FS: 30.4 % Ao root diam: 2.7 cm IVSd: 1.0 cm LVIDs: 2.7 cm EDV(Teich): Ao root area: LVPWd: 1.1 cm 65.4 ml 5.8 cm2 ESV(Teich): LA dimension: 3.2 cm 27.1 ml EF(Teich): 58.5 % LVLd ap4: 8.0 cm SV(MOD-sp4): EDV(MOD-sp4): 36.0 ml 54.0 ml LVLs ap4: 6.3 cm ESV(MOD-sp4): 18.0 ml EF(MOD-sp4): 66.7 % Doppler Measurements & Calculations MV E max arron: MV P1/2t max arron: Ao V2 max: LV V1 max P.4 cm/sec 87.9 cm/sec 100.4 cm/sec 6.0 mmHg MV A max arron: MV P1/2t: 56.7 msec Ao max PG: LV V1 max: 42.9 cm/sec MVA(P1/2t): 3.9 cm2 4.0 mmHg 122.4 cm/sec MV E/A: 2.0 MV dec slope: 453.7 cm/sec2 MV dec time: 0.19 sec PA V2 max: MV P1/2t-pr_phl: 108.1 cm/sec 56.7 msec PA max P.7 mmHg Left Ventricle The left ventricle is normal in size. There is normal left ventricular wall thickness. The left ventricular ejection fraction is within normal limits. LV EF is 60%. LV diastolic function could not be adequately assessed due to atrial fibrilation. The left ventricular wall motion is normal. There is no thrombus. No ASD , VSD , or PFO seen. Right Ventricle The right ventricle is normal in size and function. Atria The right atrium is normal. The left atrial size is normal. Mitral Valve There is no evidence of mitral valve prolapse. There is no vegetation seen on the mitral valve. There is no mitral valve stenosis. There is a trace amount of mitral regurgitation. Aortic Valve There is no aortic valvular vegetation. There is aortic sclerosis without aortic stenosis. There is no LVOT obstruction. No aortic regurgitation is present. Tricuspid Valve There is no tricuspid stenosis. There is a trace amount of tricuspid regurgitation. Unable to calculate RVSP due to insufficient TR jet. Pulmonic Valve There is no pulmonic valvular stenosis. There is no pulmonic valvular regurgitation. Great Vessels The aortic root is normal size. The inferior vena cava appeared normal and decreased > 50% with respiration (RAP 5-10 mmHg). Effusions There is no pericardial effusion. : DAVID PRABHAKAR Lakshmi
[2019-03-30] MEDS: DILTIAZEM HCL 60 MG TABLET PO SCH ×2 (00:11→06:22)
--- NOTE | 2019-03-30 00:16 | DRAGON STRESS TEST REPORT ---
Intravenous Lexiscan Cardiolite stress test using single photon emmision computerized tomography. Date of procedure: 03/29/2019.Ordering Provider: Dr. Kirill Moreno. Patient's status: In Patient. Indication: New onset atrial fibrillation.. Coronary risk factors: Age, and tobacco abuse disorder. Resting EKG: Atrial fibrillation with controlled ventricular response. Diffuse nonspecific ST-T changes. Stress EKG: No changes of ischemia. Patient had no chest pain or discomfort, and there were no arrhythmias seen. Reason for termination: Protocol. Conclusions: Normal EKG and hemodynamic response to IV Lexiscan. Nuclear data: At rest the patient was given 10.36 millicuries of technetium 99m sestamibi injected intravenously. As per protocol rest non gated SPECT images were obtained. Subsequently the patient was given intravenous Lexiscan at a dose of 0.4 mg in 5 mL intravenously, followed by flush with normal saline. Subsequently the stress dose of 31.7 millicuries of technetium 99m sestamibi was injected intravenously. As per protocol stress gated images were obtained. Nuclear interpretation: Review of images showed that all segments of the myocardium had normal perfusion at rest, and normal perfusion post stress with IV Lexiscan. All segments of the myocardium had normal motion, contraction, and thickening by gated study. T. I D. ratio was normal at 1.13. There is no transient ischemic dilatation of the left ventricle. Computer read rest, and stress left ventricular ejection fraction were 43 %, and 45 %, respectively. Visually both the stress and rest ejection fractions were normal, and greater than 55%. Conclusion: 1. There is no scintigraphic evidence of Lexiscan induced myocardial ischemia. 2. There is no scintigraphic evidence of myocardial infarction/scar. Recommendations: Aggressive risk factor modification, and treating the underlying co- morbidities. MTDD
[2019-03-30] MEDS: HEPARIN SOD (PORCINE) 5,000 UNIT/ML 1 ML VIAL SUBCUT SCH ×3 (06:22→21:46)
[2019-03-30] MEDS ORDERED: POTASSIUM CHLORIDE 10 MEQ CAPSULE.ER PO ONE (08:14)
[2019-03-30] MEDS ORDERED: CALCIUM GLUCONATE 1,000 MG in DEXTROSE 5%-WATER 50 ML IV ONE (08:16)
--- NOTE | 2019-03-30 08:19 | Progress Note Acknowledgement ---
Progress Note Acknowledgement Progess Note Acknowledgement: I, the undersigned member of the medical staff with appropriate privileges and with supervisory authority over [Dominic Miles], a dependent practice allied health professional, acknowledge that I have reviewed the progress notes entered on this patient, and in my professional judgment believe that the assessment made and/or any care evidenced was appropriate
--- NOTE | 2019-03-30 08:23 | PDOC PROGRESS REPORT ---
Subjective Progress Note for:: 03/30/19 Reason For Visit: AFIB ETOH W/D SZ Physical Exam Vital Signs: Temp Pulse Resp BP Pulse Ox 97.7 F 63 18 133/84 H 100 03/30/19 07:49 03/30/19 07:49 03/30/19 07:49 03/30/19 07:49 03/30/19 07:49 Intake & Output 03/29/19 03/30/19 03/31/19 06:59 06:59 06:59 Intake Total 1743 1555 Balance 1743 1555 Weight 62.5 kg 61.2 kg General appearance: PRESENT: no acute distress, well-developed, well-nourished Head exam: PRESENT: atraumatic, normocephalic Eye exam: PRESENT: conjunctiva pink, EOMI, PERRLA. ABSENT: scleral icterus Ear exam: PRESENT: normal external ear exam Mouth exam: PRESENT: moist, tongue midline Neck exam: ABSENT: carotid bruit, JVD, lymphadenopathy, thyromegaly Respiratory exam: PRESENT: clear to auscultation luh. ABSENT: rales, rhonchi, wheezes Cardiovascular exam: PRESENT: irregular rhythm, tachycardia. ABSENT: diastolic murmur, rubs, systolic murmur Pulses: PRESENT: normal dorsalis pedis pul Vascular exam: PRESENT: normal capillary refill GI/Abdominal exam: PRESENT: normal bowel sounds, soft. ABSENT: distended, guarding, mass, organolmegaly, rebound, tenderness Rectal exam: PRESENT: deferred Extremities exam: PRESENT: full ROM. ABSENT: calf tenderness, clubbing, pedal edema Neurological exam: PRESENT: alert, awake, oriented to person, oriented to place, oriented to time, oriented to situation, CN II-XII grossly intact. ABSENT: motor sensory deficit Psychiatric exam: PRESENT: appropriate affect, normal mood. ABSENT: homicidal ideation, suicidal ideation Skin exam: PRESENT: dry, intact, warm. ABSENT: cyanosis, rash Results Laboratory Results: 03/27/19 02:42 03/27/19 02:42 03/26/19 03/26/19 03/26/19 18:30 18:30 20:45 Creatine Kinase 463 H 611 H CK-MB (CK-2) 2.90 Troponin I 0.016 03/26/19 03/27/19 03/27/19 20:45 02:42 02:42 Creatine Kinase 677 H CK-MB (CK-2) 3.27 3.26 Troponin I 0.027 0.032 03/27/19 03/27/19 08:32 08:32 Creatine Kinase 721 H CK-MB (CK-2) 3.10 Troponin I 0.026 Impressions: Head CT 03/26/19 18:36 IMPRESSION: NO ACUTE INTRACRANIAL FINDINGS. EVIDENCE OF ACUTE STROKE: NO. Assessment and Plan - Diagnosis (1) Alcohol withdrawal seizure Qualifiers: Complication of substance-induced condition: with delirium Qualified Code(s): F10.231 - Alcohol dependence with withdrawal delirium Is this a current diagnosis for this admission?: Yes Plan: We got him on some scheduled Valium with PRN Ativan to prevent further seizures. He is unsure about whether or not he wants to quit drinking. 03/30/2019-continue to follow continue PRN Ativan and Valium. No seizure activity this time. (2) Atrial fibrillation with rapid ventricular response Is this a current diagnosis for this admission?: Yes Plan: We switched him over to p.o. Cardizem every 6 hours and his rate is better controlled. His chads vASC score is only 1. 03/30/2019-I DC'd Cardizem every 6 hours put him on Cardizem CD 24 mill grams p.o. daily of added metoprolol succinate 25 mill grams p.o. twice daily and Eliquis 5 mg p.o. twice daily for anticoagulation. I will continue to follow and adjust medications as needed. (3) Hypomagnesemia Is this a current diagnosis for this admission?: Yes Plan: Resolved 03/20/2019-resolved (4) Elevated troponin Is this a current diagnosis for this admission?: Yes Plan: Stress test final result is still pending but unofficially it was negative. Echocardiogram is pending. 03/20/2019-stress test was negative and echocardiogram showed LV function of 60% with no other abnormal findings. - Time Time Spent with patient: 15-24 minutes - Inpatient Certification Based on my medical assessment, after consideration of the patient's comorbidities, presenting symptoms, or acuity I expect that the services needed warrant INPATIENT care.: Yes I certify that my determination is in accordance with my understanding of Medic are's requirements for reasonable and necessary INPATIENT services [42 CFR 412.3e].: Yes Medical Necessity: Other - Adjust medications for rate control
[2019-03-30] MEDS: DIAZEPAM 5 MG TABLET PO SCH ×2 (09:24→21:46)
[2019-03-30] MEDS: THIAMINE HCL 100 MG TABLET PO SCH (09:24)
[2019-03-30] MEDS: DOCUSATE SODIUM 100 MG CAPSULE PO SCH ×2 (09:24→19:03)
[2019-03-30] MEDS: DILTIAZEM HCL 240 MG CAPSULE.CR PO SCH (09:24)
[2019-03-30] MEDS: METOPROLOL SUCCINATE 25 MG TAB.SR.24H PO SCH ×2 (09:24→21:46)
[2019-03-30] MEDS: APIXABAN 5 MG TABLET PO SCH ×2 (09:24→19:03)
[2019-03-30] MEDS: NICOTINE 21 MG/24 HR PATCH.TD24 TD PRN (09:30)
[2019-03-30] MEDS ORDERED: CALCIUM GLUCONATE 1000 MG/10 ML INJ IV ONE (09:30)
[2019-03-30] MEDS: ACETAMINOPHEN 325 MG TABLET PO PRN (12:03)
[2019-03-31 04:57] LABS: HEMATOCRIT 41.3 % (37.9-51.0); HEMOGLOBIN 14.1 g/dL (13.5-17.0); MEAN CORPUSCULAR HEMOGLOBIN 33.3 pg (27.0-33.4); MEAN CORPUSCULAR HGB CONC 34.2 g/dL (32.0-36.0); MEAN CORPUSCULAR VOLUME 97 fl (80-97); PLATELET COUNT 205 10^3/uL (150-450); RED BLOOD COUNT 4.24 10^6/uL (4.35-5.55)
[2019-03-31 05:19] LABS: BLOOD UREA NITROGEN 10 mg/dL (7-20); CALCIUM 9.2 mg/dL (8.4-10.2); CARBON DIOXIDE 31 mmol/L (22-30); CHLORIDE 103 mmol/L (98-107); GLUCOSE 93 mg/dL (75-110); POTASSIUM 4.4 mmol/L (3.6-5.0)
[2019-03-31 05:23] LABS: ANION GAP 4 (5-19)
[2019-03-31] MEDS: HEPARIN SOD (PORCINE) 5,000 UNIT/ML 1 ML VIAL SUBCUT SCH (05:47)
--- NOTE | 2019-03-31 08:14 | PDOC PROGRESS REPORT ---
Subjective Progress Note for:: 03/31/19 Subjective:: 03/31/2019-right lower extremity pain especially on movement Reason For Visit: AFIB ETOH W/D SZ Physical Exam Vital Signs: Temp Pulse Resp BP Pulse Ox 97.3 F 109 H 17 122/86 H 96 03/31/19 04:00 03/31/19 07:00 03/31/19 04:00 03/31/19 04:00 03/31/19 04:00 Intake & Output 03/30/19 03/31/19 04/01/19 06:59 06:59 06:59 Intake Total 1555 910 Balance 1555 910 Weight 61.2 kg 60.5 kg General appearance: PRESENT: no acute distress Neck exam: ABSENT: carotid bruit, JVD, lymphadenopathy, thyromegaly Respiratory exam: PRESENT: clear to auscultation luh. ABSENT: rales, rhonchi, wheezes Cardiovascular exam: PRESENT: RRR. ABSENT: diastolic murmur, rubs, systolic murmur Pulses: PRESENT: normal dorsalis pedis pul Vascular exam: PRESENT: normal capillary refill GI/Abdominal exam: PRESENT: normal bowel sounds, soft. ABSENT: distended, guarding, mass, organolmegaly, rebound, tenderness Rectal exam: PRESENT: deferred Extremities exam: PRESENT: calf tenderness, full ROM, other - Right lower extremity pain. ABSENT: clubbing, pedal edema Neurological exam: PRESENT: alert, awake, oriented to person, oriented to place, oriented to time, oriented to situation, CN II-XII grossly intact. ABSENT: motor sensory deficit Psychiatric exam: PRESENT: appropriate affect, normal mood. ABSENT: homicidal ideation, suicidal ideation Skin exam: PRESENT: dry, intact, warm. ABSENT: cyanosis, rash Results Laboratory Results: 03/31/19 04:19 03/31/19 04:19 03/31/19 03/31/19 04:19 04:19 WBC 6.0 RBC 4.24 L Hgb 14.1 Hct 41.3 MCV 97 MCH 33.3 MCHC 34.2 RDW 13.0 Plt Count 205 Sodium 138.2 Potassium 4.4 Chloride 103 Carbon Dioxide 31 H Anion Gap 4 L BUN 10 Creatinine 0.85 Est GFR ( Amer) > 60 Glucose 93 Calcium 9.2 03/26/19 03/26/19 03/26/19 18:30 18:30 20:45 Creatine Kinase 463 H 611 H CK-MB (CK-2) 2.90 Troponin I 0.016 03/26/19 03/27/19 03/27/19 20:45 02:42 02:42 Creatine Kinase 677 H CK-MB (CK-2) 3.27 3.26 Troponin I 0.027 0.032 03/27/19 03/27/19 08:32 08:32 Creatine Kinase 721 H CK-MB (CK-2) 3.10 Troponin I 0.026 Impressions: Head CT 03/26/19 18:36 IMPRESSION: NO ACUTE INTRACRANIAL FINDINGS. EVIDENCE OF ACUTE STROKE: NO. Assessment and Plan - Diagnosis (1) Alcohol withdrawal seizure Qualifiers: Complication of substance-induced condition: with delirium Qualified Code(s): F10.231 - Alcohol dependence with withdrawal delirium Is this a current diagnosis for this admission?: Yes Plan: We got him on some scheduled Valium with PRN Ativan to prevent further seizures. He is unsure about whether or not he wants to quit drinking. 03/30/2019-continue to follow continue PRN Ativan and Valium. No seizure activity this time. 03/31/2019-PRN Ativan and Valium continue to follow (2) Atrial fibrillation with rapid ventricular response Is this a current diagnosis for this admission?: Yes Plan: We switched him over to p.o. Cardizem every 6 hours and his rate is better controlled. His chads vASC score is only 1. 03/30/2019-I DC'd Cardizem every 6 hours put him on Cardizem CD 240 Mill grams p.o. daily of added metoprolol succinate 25 mill grams p.o. twice daily and Eliquis 5 mg p.o. twice daily for anticoagulation. I will continue to follow and adjust medications as needed. 03/31/2019-continue Cardizem CD 240 mg daily. I have increased metoprolol succinate 50 mg p.o. twice daily and will continue Eliquis at this time. We will titrate medications to obtain heart rate less than 100 (3) Hypomagnesemia Is this a current diagnosis for this admission?: Yes Plan: Resolved 03/20/2019-resolved (4) Elevated troponin Is this a current diagnosis for this admission?: Yes Plan: Stress test final result is still pending but unofficially it was negative. Echocardiogram is pending. 03/20/2019-stress test was negative and echocardiogram showed LV function of 60% with no other abnormal findings. 03/31/2019-stable continue to follow (5) Right leg pain Is this a current diagnosis for this admission?: Yes Plan: 03/31/2019-at this time will obtain Doppler study of right lower extremity as patient has a complaint of right lower extremity pain to rule out DVT. Patient was placed on Eliquis yesterday. Patient is having no shortness of breath or other concerns at this time. - Time Time Spent with patient: 15-24 minutes - Inpatient Certification Based on my medical assessment, after consideration of the patient's comorbidities, presenting symptoms, or acuity I expect that the services needed warrant INPATIENT care.: Yes I certify that my determination is in accordance with my understanding of Medicare's requirements for reasonable and necessary INPATIENT services [42 CFR 412.3e].: Yes Medical Necessity: Other - Heart rate controlled, venous Doppler
[2019-03-31] MEDS: DILTIAZEM HCL 240 MG CAPSULE.CR PO SCH (10:04)
[2019-03-31] MEDS: METOPROLOL SUCCINATE 50 MG TAB.SR.24H PO SCH ×2 (10:04→21:36)
[2019-03-31] MEDS: DIAZEPAM 5 MG TABLET PO SCH ×2 (10:04→21:36)
[2019-03-31] MEDS: APIXABAN 5 MG TABLET PO SCH ×2 (10:04→17:23)
[2019-03-31] MEDS: DOCUSATE SODIUM 100 MG CAPSULE PO SCH ×2 (10:04→17:23)
[2019-03-31] MEDS: THIAMINE HCL 100 MG TABLET PO SCH (10:04)
[2019-03-31 10:36] LABS: HEPATITS B SURFACE ANTIGEN Negative (Negative)
[2019-03-31] MEDS: NICOTINE 21 MG/24 HR PATCH.TD24 TD PRN (11:30)
--- NOTE | 2019-03-31 12:07 | RADIOLOGY REPORT (SQ) ---
EXAM DESCRIPTION: VENOUS UNILATERAL LOWER COMPLETED DATE/TIME: 03/31/2019 11:53 am REASON FOR STUDY: right lower extremity pain COMPARISON: None. TECHNIQUE: Dynamic and static encinas scale and color images acquired of the right leg venous system. S elected spectral images acquired with additional compression and augmentation maneuvers. The contrala teral common femoral vein and saphenofemoral junction were also imaged. Images stored on PACS. LIMITATIONS: None. FINDINGS: COMMON FEMORAL: Normal phasicity, compression and augmentation. No visualized echogenic ma terial on encinas scale. No defects on color images. FEMORAL: Normal compression and augmentation. No visualized echogenic material on encinas scale. No defe cts on color images. POPLITEAL: Normal compression, augmentation. No visualized echogenic material on encinas scale. No defec ts on color images. CALF VESSELS: Normal compression, augmentation. No visualized echogenic material on encinas scale. No de fects on color images. GSV and SSV: Normal compression, augmentation. No visualized echogenic material on encinas scale. No def ects on color images. ANY DEEP VENOUS INSUFFICIENCY: Not evaluated. ANY EVIDENCE OF POPLITEAL CYST: No. OTHER: No other significant finding. CONTRALATERAL COMMON FEMORAL VEIN AND SAPHENOFEMORAL JUNCTION: Normal phasicity, compression and augmentation. No visualized echogenic material on encinas scale. No de fects on color images. IMPRESSION: NO EVIDENCE DVT OR SVT IN THE RIGHT LEG. TECHNICAL DOCUMENTATION: JOB ID: [id number] [employer]- All Rights Reserved Reading location - IP/workstation name: [email or web address]
[2019-03-31 12:52] LABS: HEPATITIS C VIRUS ANTIBODY 0.1 s/co ratio (0.0-0.9)
--- NOTE | 2019-04-01 08:27 | PDOC DISCHARGE SUMMARY ---
General - Admit/Disc Date/PCP Admission Date/Primary Care Provider: 03/26/19 20:34 Discharge Date: 04/01/19 - Discharge Diagnosis (1) Alcohol withdrawal seizure Is this a current diagnosis for this admission?: Yes (2) Atrial fibrillation with rapid ventricular response Is this a current diagnosis for this admission?: Yes (3) Hypomagnesemia Is this a current diagnosis for this admission?: Yes (4) Elevated troponin Is this a current diagnosis for this admission?: Yes (5) Right leg pain Is this a current diagnosis for this admission?: Yes - Additional Information Resuscitation Status: Full Code Discharge Diet: As Tolerated Discharge Activity: Activity As Tolerated Prescriptions: Diltiazem HCl [Cardizem Cd 240 mg Capsule.cr] 240 mg PO DAILY #30 capsule.cr Apixaban [Eliquis 5 mg Tablet] 5 mg PO BID #60 tablet Nicotine [Nicoderm 21 mg/24 Hr Transderm Patch] 1 each TD DAILYP PRN #28 patch.td24 PRN Reason: Metoprolol Succinate [Toprol Xl 25 mg Tab.sr] 25 mg PO DAILY #60 tab.sr.24h Metoprolol Succinate [Toprol Xl 50 mg Tab.sr] 50 mg PO DAILY #60 tab.sr.24h Home Medications: Apixaban [Eliquis 5 mg Tablet] 5 mg PO BID #60 tablet 04/01/19 Diltiazem HCl [Cardizem Cd 240 mg Capsule.cr] 240 mg PO DAILY #30 capsule.cr 04/01/19 Metoprolol Succinate [Toprol Xl 25 mg Tab.sr] 25 mg PO DAILY #60 tab.sr.24h 04/01/19 Metoprolol Succinate [Toprol Xl 50 mg Tab.sr] 50 mg PO DAILY #60 tab.sr.24h 04/01/19 Nicotine [Nicoderm 21 mg/24 Hr Transderm Patch] 1 each TD DAILYP PRN #28 patch.td24 04/01/19 History of Present Illness Patient complains of: None this a.m. History of Present Illness: ARLENE BAGLEY is a 58 year old male who presented to ER with a alcoholic seizure and was found to be in A. fib with rapid ventricular response. Hospital Course Hospital Course: Patient is a 8-year-old male with past medical history of polysubstance abuse, tobacco abuse and alcohol dependence with alcohol withdrawal seizures. He presented to the emergency department after having a seizure result for a fall from standing and a small hematoma without laceration to the posterior right parietal area. He was found to be in new onset A. fib with RVR, hypomagnesemia, hypokalemia and referred to hospitalist for admission patient was admitted treated for his alcohol withdrawal seizures and placed on Cardizem. Throughout his stay he had his Cardizem titrated as well as placed on metoprolol with titration. Patient does have and is admitted to amphetamine use as well as other illicit drugs at this time. At this time patient has went through his alcoholic withdrawal with no problems and he remains in A. fib at this time. Patient is on 240 mg of Cardizem CD daily and metoprolol succinate 75 mill grams p.o. twice daily. I started patient on Eliquis for anticoagulation as well as gave him nicotine patches for tobacco cessation at home. Patient will follow-up with maintenance apprentice in 1 to 2 weeks and primary care in 1 week. Patient stated understanding of these plan of care. Physical Exam Vital Signs: Temp Pulse Resp BP Pulse Ox 97.8 F 76 16 137/90 H 96 04/01/19 07:50 04/01/19 07:50 04/01/19 07:50 04/01/19 07:50 04/01/19 07:50 Intake & Output 03/31/19 04/01/19 04/02/19 06:59 06:59 06:59 Intake Total 910 200 Output Total 300 Balance 910 -100 Weight 60.5 kg 64.1 kg General appearance: PRESENT: no acute distress, well-developed, well-nourished Head exam: PRESENT: atraumatic, normocephalic Eye exam: PRESENT: conjunctiva pink, EOMI, PERRLA. ABSENT: scleral icterus Ear exam: PRESENT: normal external ear exam Mouth exam: PRESENT: moist, tongue midline Neck exam: ABSENT: carotid bruit, JVD, lymphadenopathy, thyromegaly Respiratory exam: PRESENT: clear to auscultation luh. ABSENT: rales, rhonchi, wheezes Cardiovascular exam: PRESENT: irregular rhythm. ABSENT: diastolic murmur, rubs, systolic murmur Pulses: PRESENT: normal dorsalis pedis pul Vascular exam: PRESENT: normal capillary refill GI/Abdominal exam: PRESENT: normal bowel sounds, soft. ABSENT: distended, guarding, mass, organolmegaly, rebound, tenderness Rectal exam: PRESENT: deferred Extremities exam: PRESENT: full ROM. ABSENT: calf tenderness, clubbing, pedal edema Neurological exam: PRESENT: alert, awake, oriented to person, oriented to place, oriented to time, oriented to situation, CN II-XII grossly intact. ABSENT: motor sensory deficit Psychiatric exam: PRESENT: appropriate affect, normal mood. ABSENT: homicidal ideation, suicidal ideation Skin exam: PRESENT: dry, intact, warm. ABSENT: cyanosis, rash Results Laboratory Results: 03/31/19 04:19 03/31/19 04:19 03/26/19 03/26/19 03/26/19 18:30 18:30 20:45 Creatine Kinase 463 H 611 H CK-MB (CK-2) 2.90 Troponin I 0.016 03/26/19 03/27/19 03/27/19 20:45 02:42 02:42 Creatine Kinase 677 H CK-MB (CK-2) 3.27 3.26 Troponin I 0.027 0.032 03/27/19 03/27/19 08:32 08:32 Creatine Kinase 721 H CK-MB (CK-2) 3.10 Troponin I 0.026 Impressions: Head CT 03/26/19 18:36 IMPRESSION: NO ACUTE INTRACRANIAL FINDINGS. EVIDENCE OF ACUTE STROKE: NO. Venous Doppler Study 03/31/19 00:00 IMPRESSION: NO EVIDENCE DVT OR SVT IN THE RIGHT LEG. Qualifiers - * PATIENT BEING DISCHARGED WITH ANY OF THE FOLLOWING DIAGNOSIS: No Acute Heart Failure - Is this a Heart Failure Patient?: No Plan Time Spent: Greater than 30 Minutes
[2019-04-01 08:43] VITALS: BP 138/84
[2019-04-01] MEDS: DILTIAZEM HCL 240 MG CAPSULE.CR PO SCH (09:46)
[2019-04-01] MEDS: APIXABAN 5 MG TABLET PO SCH (09:46)
[2019-04-01] MEDS: DOCUSATE SODIUM 100 MG CAPSULE PO SCH (09:46)
[2019-04-01] MEDS: DIAZEPAM 5 MG TABLET PO SCH (09:46)
[2019-04-01] MEDS: THIAMINE HCL 100 MG TABLET PO SCH (09:46)
[2019-04-01] MEDS ORDERED: METOPROLOL SUCCINATE 50 MG TAB.SR.24H PO SCH (10:00)
== END 2019-04-01 09:56 | disposition home or self-care (01) | DRG 897 ==
LOC: ER 17:52 → EH 20:34 → 3N 23:37
PROVIDERS: ADMIT Internal Medicine; ATTEND Internal Medicine
DX: F10.231 Alcohol dependence with withdrawal delirium (principal); I48.91 Unspecified atrial fibrillation; R56.9 Unspecified convulsions; E87.6 Hypokalemia; E83.42 Hypomagnesemia; S00.03XA Contusion of scalp, initial encounter; M79.604 Pain in right leg; R79.89 Other specified abnormal findings of blood chemistry; F17.210 Nicotine dependence, cigarettes, uncomplicated; Y90.0 Blood alcohol level of less than 20 mg/100 ml; W18.39XA Other fall on same level, initial encounter; Y93.89 Activity, other specified; Y92.89 Other specified places as the place of occurrence of the external cause
CPT/HCPCS: 36415; 70450; 78452; 80048; 80053; 80074; 80307; 81001; 82550; 82553; 82962; 83735; 84100; 84443; 84484; 85025; 85027; 85610; 85730; 93005; 93010; 93017; 93306; 93971; 96365; 96366; 96368; 96375; 99285; A9500; J1644; J2060; J2785; J3411; J3475; J3480; J3490; J7030; Q9969

== ENCOUNTER → 2019-07-26 | Outpatient (CLI) | payer OTHER ==
--- NOTE | 2019-07-27 11:03 | XCELERA REPORT ---
[address] [address] Lower Extremity Arterial Evaluation Name: ARLENE BAGLEY Age: 58 yrs Gender: Male : [id number] Patient Status: Outpatient Patient Location: [facility] Study Date: 07/26/2019 01:05 PM Procedure: A color flow and duplex scan of the lower extremity arteries was performed bilaterally with velocity and waveform anaylsis. Ankle brachial indicies performed. Reason For Study: PVD, CLAUDICATION Ordering Physician: CATINA MESA Performed By: Tejinder Baez Measurements and Calculations Right Left DEV OPS ENGINEER PSV 15.3 110.3 cm/sec Prox PFA PSV 81.6 -127.1cm/sec Prox SFA PSV 303.8 cm/sec Mid SFA PSV -8.4 -73.1 cm/sec Dist SFA PSV -23.0 -50.3 cm/sec Prox Pop A PSV 18.9 52.5 cm/sec Dist Pop A PSV -21.0 -61.5 cm/sec Dist FRANCESCO PSV 8.1 45.8 cm/sec Dist MANAGER ADMINISTRATIVE SERVICES PSV 24.8 -56.1 cm/sec Carlos Alberto Pedis PSV 8.3 52.5 cm/sec Right Side Arterial Evaluation Low velocity and monophasic waveforms, vessels wall calcification, spectral broadening, noted from the Common Femoral artery to the infrageniculate vessels . Collaterals and retrograde flow in the Deep Femoral artery. Ankle Brachial index 0.51. Left Side Arterial Evaluation Normal velocity and triphasic waveforms noted from the Common Femoral artery to the infrageniculate vessels . Biphasic with increased velocity in the Deep Femoral . Ankle Brachial index 0.83. Interpretation Summary Severe hemodynamically significant lesions in the right lower extremity only, on duplex imaging, at rest. Mild hemodynamically significant lesions in the left lower extremity only, on duplex imaging, at rest. Duplex findings indicating severe inflow disease, with likely obstruction, reconstitution in the Deep Femoral artery on the right. On the left significant stenosis in the Deep Femoral only. VANDANA's are indicative of moderately severe obstructive disease on the right, mild on the left. Concordant with duplex findings, on the left, underestimating on the right. : CATINA MESA > Godfrey Napoles
== END ==
LOC: SP 12:14
PROVIDERS: ATTEND Family Medicine
DX: I70.213 Atherosclerosis of native arteries of extremities with intermittent claudication, bilateral legs (principal)
CPT/HCPCS: 93922; 93925

== ENCOUNTER → 2019-09-20 | Outpatient (CLI) | payer MEDICAID, OTHER ==
[~2019-09-20] MED LIST: ALBUTEROL SULFATE 0.083% NEB 2.5 MG/3 ML AMPUL NEB ONE
--- NOTE | 2019-09-21 16:42 | Pulmonary Function Test ---
Pulmonary Function Test Date of Procedure:: 09/20/19 INDICATION:: Dyspnea Referring Provider: Dr. David Nuclear Medicine Pet Ct Technologist: Peyton Brown, LABEL PRINTING MACHINIST, GREY PERCHER - Report Spirometry: Spirometry: pre-FVC: 111% 4.62 L post-FVC: 4.73 L 114% pre-FEV:1 2.86 L 86% post-FEV1: 2.70 L 80% pre-FEV1/FVC %: 62 post-FEV1/FVC%: 57 predicted: 81 otu-[id number]%: 1.29 L 37% auat-[id number]%: 0.71 L 20% Impression: Moderate obstructive ventilatory defect. Insignificant response to bronchodilator therapy. This in and of itself does not preclude a clinical trial of bronchodilator therapy.
== END ==
LOC: RT 13:18
PROVIDERS: ATTEND Family Medicine
DX: J44.9 Chronic obstructive pulmonary disease, unspecified (principal); I73.9 Peripheral vascular disease, unspecified; I10 Essential (primary) hypertension; R06.00 Dyspnea, unspecified
CPT/HCPCS: 94060; 94761